=== PATIENT | female | born 1995 | race Caucasian/White ===

== ENCOUNTER 2021-12-28 11:36 | Emergency (ER) | payer MEDICAID, SELFPAY ==
[2021-12-28] VITALS (11 sets, daily range): BP systolic 111–119; BP diastolic 72–89; PULSE 48–89; RESP 3–19; TEMP 36.7; O2SAT 98–100
--- NOTE | ~2021-12-28 | US_ITS ---
EXAMINATION: US pelvic complete DATE: 12/28/2021 15:30 INDICATION: Ovarian cyst. TECHNIQUE: Multiple transabdominal and transvaginal sonographic images of the pelvis were obtained. COMPARISON: CT abdomen and pelvis 12/28/2021 FINDINGS: TRANSABDOMINAL ULTRASOUND: The uterus measures 8.5 x 3.0 x 5.8 cm. There is no free fluid in the pelvis. TRANSVAGINAL ULTRASOUND: The endometrial complex measures 3 mm in thickness. The right ovary measures 3.0 x 1.4 x 2.7 cm. The left ovary measures 3.0 x 3.2 x 2.7 cm. There is a 2.3 cm hemorrhagic cyst in left ovary. There is no rmal vascular flow in the ovaries. IMPRESSION: 1. 2.3 cm hemorrhagic cyst in left ovary. Reviewed, dictated and finalized at location A.
--- NOTE | ~2021-12-28 | CT_ITS ---
EXAMINATION: CT abdomen pelvis w con DATE: 12/28/2021 12:48 INDICATION: Left lower quadrant abdominal pain. Nausea and vomiting. TECHNIQUE: Computed tomography (CT) of the abdomen and pelvis was performed with 100 CC Omnipaque 300 intravenous contrast. Automated exposure control and iterative reconstruction technique were employe d. Exam dose: 284.85 mGy-cm total exam DLP. COMPARISON: None. FINDINGS: The lung bases are clear. Normal heart size. No pericardial or pleural effusion. No hepatic space-occupying mass lesion. The gallbladder is contracted. The gallbladder wall is mildly thickened and enhancing and there is mi nimal pericholecystic fluid. Acute or chronic cholecystitis are not excluded. There is mild intrahepa tic and extrahepatic bile duct dilatation, the common bile duct measuring up to 8 to 9 mm. No pancrea tic ductal dilatation. No pancreatic mass lesion or calcification. Normal splenic size. Normal morphology of the adrenal glands. No renal mass lesion. 7.8 x 11.7 mm nonobstructing lower pole left renal calculus with attenuation of 1000 Hounsfield units . There is some enhancement of the wall of the left renal pelvis and left ureter, suggesting possible l eft acute pyelonephritis. Urinalysis and clinical correlation are recommended. Left ovarian cysts including one measuring up to approximately 1.8 x 2.7 cm. The uterus and adnexal a reas and urinary bladder are otherwise unremarkable. Normal appendix. There is thickening of the wall of the distal and terminal ileum which may be due to infectious or inflammatory ileitis. The colon is relatively evacuated. No bowel obstruction or free air is detected. No erosive change or ankylosis at the sacroiliac joints. Normal caliber of the abdominal aorta. No intraperitoneal or retroperitoneal or pelvic mass lesion or adenopathy or ascites. Included skeletal structures are unremarkable. No suspicious osteolytic or osteoblastic lesions. IMPRESSION: Terminal and distal ileitis; consider infectious or inflammatory ileitis Normal appendix 7.8 x 11.7 mm nonobstructing lower pole left renal calculus Enhancing wall in left renal pelvis and proximal left ureter, suggesting possible acute pyelonephriti s. Consider urinalysis and clinical correlation Up to 1.8 x 2.7 cm left ovarian cysts Mild gallbladder wall thickening and enhancement and minimal pericholecystic fluid. Consider acute or chronic cholecystitis. Reviewed, dictated and finalized at Location [facility]. Reviewed, dictated and finalized at location B. IMPRESSION: Terminal and distal ileitis; consider infectious or inflammatory i leitis Normal appendix 7.8 x 11.7 mm nonobstructing lower pole left renal calculus Enhancing wall in left renal pelvis and proximal left ureter, suggesting possib le acute pyelonephritis. Consider urinalysis and clinical correlation Up to 1.8 x 2.7 cm left ovarian cysts Mild gallbladder wall thickening and enhancement and minimal pericholecystic fl uid. Consider acute or chronic cholecystitis.
--- NOTE | 2021-12-28 11:35 | ED.ABDPAIN ---
HPI - Abdominal Pain General Chief Complaint: Abdominal Pain Stated Complaint: ABD Pain x3 months, N/V/D History of Present Illness HPI narrative: Patient is a 26-year-old female with a history of nephrolithiasis, recent spontaneous miscarriage, presenting to the emergency department for evaluation of left lower quadrant abdominal pain. Patient reporting recent miscarriage last week. Patient states that she is from [place] and is visiting her sister who lives in this area. Patient reports acute onset severe left lower quadrant pain which is sharp, stabbing in nature this morning. Patient states that she has struggled with this pain chronically over the past 3 months. She does have a history of 10 mm kidney stone, but patient's is not sure what kidney this is in. She does not currently have a urologist. Patient denies dysuria, hematuria, she does report both diarrhea and constipation when questioned. She denies fever, chills, she reports nausea and vomiting. She denies upper abdominal pain, chest pain, cough or shortness of breath. Patient reports any current vaginal bleeding or discharge. She reports history of 2 miscarriages in the past. Related Data Allergies Allergy/AdvReac Type Severity Reaction Status Date / Time No Known Allergies Allergy Verified 12/28/21 11:41 Review of Systems Review of Systems: CONSTITUTIONAL: Denies fever, chills, or sweats. EYES: Denies visual changes, redness, or discharge. ENT: Denies rhinorrhea, congestion, sore throat, or otalgia. CARDIOVASCULAR: Denies chest pain, palpitations, or edema. RESPIRATORY: Denies cough or dyspnea. GASTROINTESTINAL: Reports left lower quadrant abdominal pain, nausea and vomiting, diarrhea and constipation GENITOURINARY: Denies dysuria or hematuria. SKIN: Denies rash or itching. MUSCULOSKELETAL: Reports mild left back pain without other joint pain or myalgias NEUROLOGIC: Denies headache, numbness, or weakness. REPLACED BY [facility] Social History Social History (Updated 12/28/21 @ 11:48 by Xiomara Lira MD) Smoking status: Unknown if ever smoked Alcohol intake: current Alcohol use details: Socialsocial Substance use: current Substance use type: marijuana Living arrangements: with family Gender identity (if verbalized by the patient): Female Exam Narrative: GENERAL: Awake, alert, conversant, uncomfortable. HEAD: Normocephalic, atraumatic. EYES: PERRLA and EOMI. ENT: Nares clear, no rhinorrhea or epistaxis. Mucous membranes moist. NECK: Supple. CHEST: No respiratory distress, breathing even and non labored HEART: Regular rate, sinus rhythm ABDOMEN:Non distended, tender left lower quadrant with positive guarding, no rigidity or rebound, positive left flank tenderness EXTREMITIES: Normal range of motion. No edema. SKIN: Warm, dry, no rash. NEURO:No focal deficits. Alert and oriented x3 Course Vital Signs Vital signs: Vital Signs Temperature 36.7 C 12/28/21 11:35 Pulse Rate 89 12/28/21 11:35 Respiratory Rate 18 12/28/21 11:35 Blood Pressure 111/89 12/28/21 11:35 Pulse Oximetry 100 12/28/21 11:35 Oxygen Delivery Room Air 12/28/21 11:35 Temperature 36.7 C 12/28/21 11:35 Pulse Rate 64 12/28/21 15:30 Respiratory Rate 12 12/28/21 15:30 Blood Pressure 119/72 12/28/21 13:15 Pulse Oximetry 99 12/28/21 13:15 Oxygen Delivery Room Air 12/28/21 11:35 MDM - Abdominal Pain MDM Narrative Medical decision making narrative: Patient presenting for evaluation of abdominal pain, located in the left lower quadrant. At the time of assessment, ABCs are intact and vital signs are stable. Differential includes ovarian torsion versus ruptured ectopic versus renal colic, diverticulitis. IV access obtained and labs are drawn. Laboratory results are notable for mild leukocytosis, stable anemia. No acute kidney injury or electrolyte derangement. Urinalysis is concerning for urinary tract infection. Patien
[2021-12-28] MEDS: ONDANSETRON INJ 4 MG/2 ML VIAL IV PUSH (11:47)
[2021-12-28] MEDS: MORPHINE SULFATE (*CRX) 4 MG/ML INJ IV PUSH ×2 (11:47→13:49)
[2021-12-28] MEDS: SODIUM CHLORIDE 0.9% IV 1,000 ML 999 ML IV CONT (11:52)
[2021-12-28 12:03] LABS: Basophils Absolute Auto 0.1 K/mm3 (0.0-0.1); Basophils Percent Auto 0.7 % (0.2-1.2); Eosinophils Absolute Auto 0.2 K/mm3 (0-0.3); Eosinophils Percent Auto 1.3 % (0-4.4); Hematocrit 33.9 % (37.0-47.0); Hemoglobin 10.3 g/dL (12.0-15.0); Immature Granulocyte Absolute 0.05 K/mm3 (0.00-0.031); Immature Granulocyte Percent A 0.4 % (0-0.5); Lymphocytes Absolute Auto 1.85 K/mm3 (0.9-3.2); Lymphocytes Percent Auto 15.9 % (18.3-44.2); Mean Corpuscular HGB Conc 30.4 g/dl (32-36); Mean Corpuscular Hemoglobin 22.6 pg (26-34); Mean Corpuscular Volume 74.3 fl (80-100); Mean Platelet Volume 10.7 fl (7.4-10.4); Monocytes Absolute Auto 0.4 K/mm3 (0.1-0.6); Monocytes Percent Auto 3.4 % (2.6-8.5); Neutrophils Absolute Auto 9.1 K/mm3 (1.3-6.7); Neutrophils Percent Auto 78.3 % (45.5-73.1); Platelet Count Result 456 k/mm3 (150-375); Red Blood Count 4.56 M/mm3 (4.2-5.4); Red Cell Distribution Width 18.1 % (11.5-14.5); White Blood Count 11.6 K/mm3 (4.5-10.0)
[2021-12-28 12:12] LABS: Glucose Point of Care 112 mg/dl (65-105)
[2021-12-28 12:15] LABS: Appearance Urine Cloudy (Clear); Bilirubin Urine 1+ (Negative); Blood Urine 3+ (Negative); Color Urine Yellow (Yellow); Glucose Urine UA Negative (Negative); Ketones Urine 1+ mg/dL (Negative); Leukocyte Esterase Ur 1+ LEU/UL (Negative); Nitrate Urine Positive (Negative); Protein Urine 2+ mg/dL (Negative); Specific Grav Ur >= 1.030 (1.001-1.035); Urobilinogen Urine 0.2 mg/dL (<2.0); pH Urine 5.5 (5.0-9.0)
[2021-12-28 12:18] LABS: Alanine Aminotransferase 16 U/L (6-35); Albumin Level 4.1 g/dL (3.5-5.1); Alkaline Phosphatase 100 U/L (38-126); Anion Gap 9 mmol/L (8-16); Aspartate Amino Transferase 31 U/L (14-36); Bilirubin,Total 0.4 mg/dL (0.2-1.3); Blood Urea Nitrogen 6 mg/dL (7-17); Calcium 8.7 mg/dL (8.4-10.2); Carbon Dioxide 22 mmol/L (22-30); Chloride 110 mmol/L (98-107); Estimated CRCL calculation 100 ml/min; Estimated Glomerular Filt Rate > 60; Glucose 115 mg/dL (65-110); Lipase 30 U/L (23-300); Potassium 4.4 mmol/L (3.4-5.0); Sodium 141 mmol/L (137-145)
[2021-12-28 12:20] LABS: Bacteria Urine Trace /hpf; Mucus Urine Heavy /lpf; RBC Urine >75 /hpf (0-2); Squamous Epithelial Cell Urine Many /hpf (Few); WBC Urine >75 /hpf
[2021-12-28 12:32] LABS: Crenated RBC 1+ (NORMAL); Hypochromasia 1+ (NORMAL); Microcytosis 1+ (NORMAL); Ovalocytes 1+ (NORMAL)
[2021-12-28 12:33] LABS: Add Urine Microscopic? YES
[2021-12-28] MEDS: KETOROLAC 15 MG/ML VIAL (*BKC) IV PUSH (15:49)
== END 2021-12-28 15:53 | disposition home or self-care (01) ==
PROVIDERS: Emergency Provider Emergency Medicine
DX: N12 Tubulo-interstitial nephritis, not specified as acute or chronic (principal); N83.202 Unspecified ovarian cyst, left side
CPT/HCPCS: 36415; 74177; 76856; 80053; 81001; 81025; 82948; 83690; 85025; 87077; 87086; 87186; 96365; 96375; 96376; 99284; J0131; J0696; J1885; J2270; J2405; J7030; Q9967

== ENCOUNTER 2021-12-30 05:33 | Inpatient (IN) | payer MEDICAID, SELFPAY ==
--- NOTE | ~2021-12-30 | US_ITS ---
US abdomen limited INDICATION: Right upper quadrant pain. History of cholelithiasis. PROCEDURE: Realtime right upper abdominal ultrasound. COMPARISON: No prior studies for comparison. FINDINGS: The pancreas is normal without focal mass or pancreatic ductal dilation. Liver echotexture is normal without focal mass or intrahepatic biliary dilatation. There is normal directional flow i n the portal vein. There are gallstones with gallbladder wall thickening, although this could be due to underdistention. . Common bile duct measures 8 mm. No sonographic Aguilera's sign. IMPRESSION: 1: Cholelithiasis and gallbladder neck with possible gallbladder wall thickening versus underdistenti on. Consider cholecystitis in the appropriate clinical setting. Reviewed, dictated and finalized at location A. IMPRESSION: 1: Cholelithiasis and gallbladder neck with possible gallbladder wall thickenin g versus underdistention. Consider cholecystitis in the appropriate clinical se tting.
--- NOTE | ~2021-12-30 | CT_ITS ---
EXAMINATION: CT abdomen pelvis wo con DATE: 12/30/2021 06:33 INDICATION: Hematuria TECHNIQUE: Computed tomography (CT) of the abdomen and pelvis was performed without intravenous contr ast. Automated exposure control and iterative reconstruction technique were employed. The dose-length product was 268.20 mGy-cm. COMPARISON: 12/28/2021 FINDINGS: Lung bases are clear. Heart size is normal. No pericardial or pleural effusion. Liver, spleen, pancre as and bilateral adrenal glands are normal. There is some vicariously excreted contrast likely from t he contrast enhanced CT from 2 days prior within the decompressed gallbladder. Bilateral nephrolithia sis the largest a 11 mm stone at the left ureteropelvic junction. Additional 1 mm and 4 mm stones in the left lower pole calyces of the right kidney respectively. No ureteral stones or hydronephrosis. N ormal appendix and colon. Again seen is edematous-appearing wall thickening of the distal 35 cm of il eum consistent with an ileitis which could be inflammatory or infectious in etiology. No bowel obstru ction. Bladder, anteverted uterus and bilateral adnexa are unremarkable. No abscess or free intraperi toneal gas or fluid. Bones are unremarkable. IMPRESSION: 1. Bilateral nonobstructing nephrolithiasis. No ureteral stones or hydronephrosis. 2. Persistent terminal ileitis extending 35 cm from the ileocecal valve which could be inflammatory s uch as in the setting of Crohn's disease or infectious in etiology. Reviewed, dictated and finalized at location A. IMPRESSION: 1. Bilateral nonobstructing nephrolithiasis. No ureteral stones or hydronephros is. 2. Persistent terminal ileitis extending 35 cm from the ileocecal valve which c ould be inflammatory such as in the setting of Crohn's disease or infectious in etiology.
--- NOTE | ~2021-12-30 | XR_ITS ---
EXAMINATION: XR UGIAC w small bowel DATE: 01/03/2022 12:20 INDICATION: Ileitis TECHNIQUE: The patient drank thick barium, gas-producing crystals, and thin barium. Conventional supi ne abdomen radiographs and fluoroscopic spot radiographs of the esophagus, stomach, and proximal smal l bowel were obtained. Additional overhead radiographs were obtained during the transit through the s mall bowel. Spot fluoroscopic images of the small bowel were obtained upon contrast reaching the cec um. A total of 688 fluoroscopic images and 7 overhead radiographs were obtained. Fluoroscopy exposure time was 4.0 minutes. COMPARISON: None. FINDINGS: The esophagus is normal without mass or stricture. Esophageal motility is normal. There is no hiatal hernia. There was no gastroesophageal reflux with provocative maneuvers. The stomach and proximal sma ll bowel are normal. Transit time from the stomach to proximal colon was approximately 2-3 hours. There is normal caliber and mucosal fold pattern throughout the small bowel. Terminal ileum appears normal with no stricture or abnormal fold thickening. IMPRESSION: 1. Normal upper GI and small bowel follow-through study. The edematous wall thickening in the distal ileum evident on prior CT is not appreciated and may have resolved. Reviewed, dictated and finalized at location A. IMPRESSION: 1. Normal upper GI and small bowel follow-through study. The edematous wall thi ckening in the distal ileum evident on prior CT is not appreciated and may have resolved.
[2021-12-30 05:37] VITALS: BP 135/108; PULSE 64; RESP 14; TEMP 36.8; O2SAT 99
--- NOTE | 2021-12-30 06:03 | ED.GENADULT ---
HPI - General Adult General Chief complaint: Abdominal Pain <Den Alcocer MD - Last Filed: 12/30/21 19:24> Stated complaint: ruq abd pain, n/v, <Den Alcocer MD - Last Filed: 12/30/21 19:24> Time Seen by Provider: 12/30/21 05:35 <Den Alcocer MD - Last Filed: 12/30/21 19:24> History of Present Illness HPI narrative: 26 year-old female with history of cholelithiasis, nephrolithiasis and recent miscarriage presenting to the emergency department for evaluation of left lower quadrant pain and right upper quadrant pain. Patient was seen on the for left lower quadrant pain and was diagnosed with a ruptured cyst. Patient also has history of cholelithiasis and over the last 24 hours has had persistent right upper quadrant pain. Patient does report associated nausea and vomiting. Patient has been taking Phenergan suppositories and Zofran sublingual for nausea without significant results. During patient's last visit she had a CT abdomen pelvis with contrast and had a pelvic ultrasound. <Den Alcocer MD - Last Filed: 12/30/21 19:24> Related Data Home medications: Home Medications Medication Instructions Recorded Confirmed dextroamphetamine-amphetamine ER 20 mg PO DAILY 12/30/21 12/30/21 20 mg 24hr capsule,extend release (Adderall XR) lorazepam 0.5 mg tablet (Ativan) 0.5 mg PO DAILY PRN Anxiety 12/30/21 12/30/21 sertraline 100 mg tablet 150 mg PO DAILY 12/30/21 12/30/21 sertraline 50 mg tablet 150 mg PO DAILY 12/30/21 12/30/21 <Den Alcocer MD - Last Filed: 12/30/21 19:24> Allergies/adverse reactions: Allergies Allergy/AdvReac Type Severity Reaction Status Date / Time No Known Allergies Allergy Verified 12/30/21 12:12 <Den Alcocer MD - Last Filed: 12/30/21 19:24> Review of Systems Review of Systems: CONSTITUTIONAL: Denies fever, chills, or sweats. EYES: Denies visual changes, redness, or discharge. ENT: Denies rhinorrhea, congestion, sore throat, or otalgia. CARDIOVASCULAR: Denies chest pain, palpitations, or edema. RESPIRATORY: Denies cough or dyspnea. GASTROINTESTINAL: Right upper quadrant and left lower quadrant abdominal pain with associated nausea vomiting GENITOURINARY: Denies dysuria or hematuria. SKIN: Denies rash or itching. MUSCULOSKELETAL: Denies back pain, joint pain, or myalgia. NEUROLOGIC: Denies headache, numbness, or weakness. <Den Alcocer MD - Last Filed: 12/30/21 19:24> REPLACED BY [facility] Past Medical History Medical History: Medical History (Updated 12/30/21 @ 19:12 by Anh Ellison MD) ADHD (attention deficit hyperactivity disorder) Anxiety Depression Hemiplegic migraine Iron deficiency anemia Nephrolithiasis <Den Alcocer MD - Last Filed: 12/30/21 19:24> Surgical History Surgical History: Surgical History (Updated 12/30/21 @ 15:32 by Jyoti Fonseca APRN) History of strabismus surgery <Den Alcocer MD - Last Filed: 12/30/21 19:24> Family History Family History: Family History (Updated 12/30/21 @ 15:34 by Jyoti Fonseca APRN) Mother Gallbladder disease Schizophrenia Grandparent Gallbladder disease Leukemia Diabetes mellitus Cerebrovascular accident Heart disease <Den Alcocer MD - Last Filed: 12/30/21 19:24> Social History Social History: Social History (Updated 12/30/21 @ 15:35 by Jyoti Fonseca APRN) Smoking packs per day: 0.33 Smoking cigarettes per day: 6.6 Years smoked: 9 Smoking pack-years: 2.97 Smoking status: Former smoker Tobacco type: e-cigarettes/vaping Second hand tobacco smoke exposure: Yes Alcohol intake: current Alcohol use details: Socially Substance use: current Substance use type: marijuana Other substance usage details: Socially Living arrangements: alone Occupation/Education: unemployed Gender identity (if verbalized by the patient): Female Spiritual care concerns: No <Den Alcocer
[2021-12-30] MEDS: METOCLOPRAMIDE HCL INJ 10 MG/2 ML VIAL IV PUSH (06:10)
[2021-12-30 06:11] LABS: Appearance Urine Cloudy (Clear); Basophils Absolute Auto 0.1 K/mm3 (0.0-0.1); Basophils Percent Auto 0.7 % (0.2-1.2); Bilirubin Urine 2+ (Negative); Blood Urine 3+ (Negative); Color Urine Yellow (Yellow); Eosinophils Absolute Auto 0.3 K/mm3 (0-0.3); Eosinophils Percent Auto 2.4 % (0-4.4); Glucose Urine UA Negative (Negative); Hematocrit 33.4 % (37.0-47.0); Hemoglobin 10.7 g/dL (12.0-15.0); Immature Granulocyte Absolute 0.02 K/mm3 (0.00-0.031); Immature Granulocyte Percent A 0.2 % (0-0.5); Ketones Urine 2+ mg/dL (Negative); Leukocyte Esterase Ur Trace LEU/UL (Negative); Lymphocytes Absolute Auto 3.67 K/mm3 (0.9-3.2); Lymphocytes Percent Auto 34.2 % (18.3-44.2); Mean Corpuscular Hemoglobin 22.7 pg (26-34); Mean Corpuscular Volume 70.8 fl (80-100); Mean Platelet Volume 11.2 fl (7.4-10.4); Monocytes Absolute Auto 0.7 K/mm3 (0.1-0.6); Monocytes Percent Auto 6.4 % (2.6-8.5); Neutrophils Percent Auto 56.1 % (45.5-73.1); Nitrate Urine Negative (Negative); Platelet Count Result 501 k/mm3 (150-375); Protein Urine 3+ mg/dL (Negative); Red Blood Count 4.72 M/mm3 (4.2-5.4); Red Cell Distribution Width 17.7 % (11.5-14.5); Specific Grav Ur >= 1.030 (1.001-1.035); Urobilinogen Urine 0.2 mg/dL (<2.0); White Blood Count 10.7 K/mm3 (4.5-10.0); pH Urine 5.5 (5.0-9.0)
[2021-12-30] MEDS: SODIUM CHLORIDE 0.9% IV 1,000 ML 999 ML IV CONT (06:11)
[2021-12-30] MEDS: HYDROmorphone HCL INJ (*CRX) 1 MG/ML SYR IV PUSH (06:12)
[2021-12-30 06:16] LABS: Lactic Acid Reflex 0.9 mmol/L (0.7-2.0)
[2021-12-30 06:18] LABS: Alanine Aminotransferase 25 U/L (6-35); Albumin Level 4.1 g/dL (3.5-5.1); Alkaline Phosphatase 108 U/L (38-126); Anion Gap 10 mmol/L (8-16); Aspartate Amino Transferase 36 U/L (14-36); Bilirubin,Total 0.5 mg/dL (0.2-1.3); Blood Urea Nitrogen 11 mg/dL (7-17); Calcium 9.3 mg/dL (8.4-10.2); Carbon Dioxide 22 mmol/L (22-30); Chloride 106 mmol/L (98-107); Estimated CRCL calculation 88 ml/min; Estimated Glomerular Filt Rate > 60; Glucose 90 mg/dL (65-110); Lipase 27 U/L (23-300); Sodium 138 mmol/L (137-145)
[2021-12-30 06:23] LABS: Bacteria Urine Trace /hpf; Mucus Urine Heavy /lpf; RBC Urine >75 /hpf (0-2); Squamous Epithelial Cell Urine Many /hpf (Few); WBC Urine >75 /hpf
[2021-12-30 06:24] LABS: Add Urine Microscopic? YES
[2021-12-30 07:56] VITALS: PULSE 70; RESP 13; O2SAT 100
[2021-12-30] MEDS: KETOROLAC 30 MG/ML VIAL (*BKC) IV PUSH (08:58)
[2021-12-30 10:19] LABS: SARS-CoV-2 RNA PCR Negative
[2021-12-30] MEDS: MORPHINE SULFATE (*CRX) 4 MG/ML INJ IV PUSH ×5 (10:37→21:52)
--- NOTE | 2021-12-30 11:23 | PM.CNGS ---
Assessment and Plan Assessment and plan (1) Cholecystitis with cholelithiasis: Code(s): K80.10 - Calculus of gallbladder with chronic cholecystitis without obstruction Status: Acute Assessment and Plan: I have reviewed the CTs and ultrasounds and discussed the findings with the patient. She has evidence of cholelithiasis and might have some mild gallbladder wall thickening suggestive of cholecystitis. Her right upper quadrant pain is mild compared to her lower abdominal pain at this time. Certainly her nausea and vomiting could be related to the gallbladder issues, but with everything else going on currently, the gallbladder be best treated conservatively at this time. I have discussed low-fat diet and symptomatic relief for the a pain and nausea at this time. Will reassess with serial abdominal examinations. Could consider laparoscopic cholecystectomy as an outpatient or more urgently if symptoms do not respond to conservative treatment. (2) Terminal ileitis: Code(s): K50.00 - Crohn's disease of small intestine without complications Status: Acute Assessment and Plan: Patient has symptoms CT findings concerning for Crohn's disease. Will await GI evaluation and further treatment before considering laparoscopic cholecystectomy. (3) Pyelonephritis: Code(s): N12 - Tubulo-interstitial nephritis, not specified as acute or chronic Status: Acute Assessment and Plan: Keflex likely not adequate for current treatment pyelonephritis. Continue antibiotic treatment per hospitalist. (4) Hemorrhagic cyst of left ovary: Code(s): N83.202 - Unspecified ovarian cyst, left side Status: Acute History of Present Illness Consult details Consult date: 12/30/21 Reason for consult: other (RUQ pain) Requesting physician: Anh Ellison MD Narrative: This is a 26-year-old woman who I am asked to see in the emergency department for right upper quadrant pain. She presents with multiple complaints and has been to the emergency department several times over the past 6 months. She is from [place] but is moving to this area. She went to the emergency department on 12/28/2021 with predominantly left lower quadrant pain. She was found to have evidence of pyelonephritis and a hemorrhagic cyst on the left ovary. She was sent home from the emergency department on Keflex. She states that for the past 2 days she has been unable to keep anything down due to severe nausea and vomiting. She is also now experiencing some pain in the right upper quadrant. This pain in the right upper quadrant has been intermittent over the past 6 months or so. She has noticed that greasy food seem to cause the pain. She also notes that her mother and grandmother both had gallbladder problems in the past. Her CT and ultrasound showed mild gallbladder wall thickening and cholelithiasis. Liver enzymes have been normal. The patient also complains of longstanding problems with her bowels. She states that she has had diarrhea softer stools most of the time since she was a teenager. She has also noticed some red stools in the past. She has never been worked up for Crohn's, but she does admit that she suspected Crohn's as a possibility for some of her symptoms. She has noticed that eating salads makes her diarrhea worse. She has had about a 30 lb weight loss over the past 6 months. She has also had 2 miscarriages in the last [address] on 12/28 and 722 both show terminal ileitis suspicious for infectious or inflammatory bowel disease. She is now being admitted for workup and treatment of all of these complaints. Review of Systems Review of Systems: All systems reviewed & are unremarkable except as noted in HPI and below Constitutional: Constitutional: Denies chills and Denies fever(s) Eyes: Eyes: Denies change in vision ENT: Denies hearing loss, Denies neck pain and Denies sore throat Cardiovascular: [facility]
--- NOTE | 2021-12-30 11:56 | PC.NURSE ---
This patient, Krista Lima, was admitted to [facility] Surg Room 310-01 on 12/30/21 @ 1145. Patient/family oriented to hospital policies and general routines including ID bracelet, bed and alarms, visiting hours, pain management, procedures, bathroom and other care routines, personal items, smoking policy, room service/diet, and visiting hours. Information on how to activate the Rapid Response Team has been discussed. Patient/Family are encouraged to report perceived risks to care and to ask questions if they do not understand what they are told or what they should do.
[2021-12-30 12:00] VITALS: BP 108/49; PULSE 48; RESP 16; TEMP 36.2; O2SAT 100
[2021-12-30] MEDS: SODIUM CHLORIDE 0.9% IV 1,000 ML 125 ML IV CONT ×2 (12:09→21:04)
[2021-12-30 13:38] VITALS: BMI 26.4
--- NOTE | 2021-12-30 14:31 | PM.IMHP ---
H&P: HPI History of Present Illness Date/Time: 12/30/21 14:31 Chief Complaint: Lower abdominal pain Narrative: Krista Lima is a 26 yo female with medical history of kidney stones, iron deficiency anemia, ADHD, depression, anxiety, hemiplegic migraines and two recent spontaneous miscarriages in the past 6 months; her last miscarriage was 3 weeks ago. She presented to the ED today for evaluation of LLQ and RUQ pain. The patient was seen at our facility on 12/28/21 for LLQ pain and was diagnosed with complicated UTI, hemorrhagic left ovary cyst and discharged home on oral Keflex. She reports that since that time her pain has persisted and she has been unable to keep food or liquids down. She has been unable to take her antibiotic because of this, as well. Her RUQ pain is intermittent over the past 6 months and worsened by greasy foods. LLQ pain is constant, sharp, worsened by touch and improved with a heating pad. She reports 2 days of associated nausea, vomiting, alternating chills and sweats, dysuria and flank pain. She did not take her temperature, however. She has chronic loose mushy stools with intermittent mucous and blood since adolescence. She has reportedly lost approximately 30 pounds. She has had no prior colonoscopy or GI evaluation. The patient is in the process of moving from [place] and has some family nearby. In the ED, her blood pressure was elevated 135/108, HR 64, RR 14, temp 98.3F, and spO2 99% on room air. Lab work showed mildly elvated WBC 10.6, H/H 10.7/33.4, and UA with 3+ blood, 3+ protein, trace leukocytes, >75 WBC, trace bacteria and 2+ urobilirubin. 12/28 urine cultures was positive for >100,[address] and abdominal US demonstrated cholelithiasis with possible gallbladder wall thickening. CT abdomen/pelvis also showed terminal ileitis suspicious for infectious or inflammatory bowel disease, as well as bilateral non-obstructing nephrolithiasis. She received 1L NS fluids, IV diluadid, IV toradol, IV reglan and 1 gram IV Rocephin in the ED. General Surgery was consulted in the ED. The patient was referred for observation and further evaluation of abdominal pain. Review of Systems Review of Systems: All systems reviewed & are unremarkable except as noted in HPI and below Neurologic: Comments: Stutter and facial numbness with migraines. Psychiatric: Comments: PHQ2 score 1. No suicidal ideation. [facility] Past Medical History Medical History (Updated 12/30/21 @ 15:56 by Jyoti Fonseca APRN) ADHD (attention deficit hyperactivity disorder) Anxiety Depression Hemiplegic migraine Iron deficiency anemia Nephrolithiasis Surgical History Surgical History (Updated 12/30/21 @ 15:32 by Jyoti Fonseca APRN) History of strabismus surgery Family History Family History (Updated 12/30/21 @ 15:34 by Jyoti Fonseca APRN) Mother Gallbladder disease Schizophrenia Grandparent Gallbladder disease Leukemia Diabetes mellitus Cerebrovascular accident Heart disease Social History Social History (Updated 12/30/21 @ 15:35 by Jyoti Fonseca APRN) Smoking packs per day: 0.33 Smoking cigarettes per day: 6.6 Years smoked: 9 Smoking pack-years: 2.97 Smoking status: Former smoker Tobacco type: e-cigarettes/vaping Second hand tobacco smoke exposure: Yes Alcohol intake: current Alcohol use details: Socially Substance use: current Substance use type: marijuana Other substance usage details: Socially Living arrangements: alone Occupation/Education: unemployed Gender identity (if verbalized by the patient): Female Spiritual care concerns: No Meds Home Medications and Allergies Home Medications Medication Instructions Recorded Confirmed Type acetaminophen 500 mg capsule 500 mg PO Q6H PRN fever or pain 12/28/21 12/30/21 Rx #30 caps cephalexin 500 mg capsule 500 mg PO Q8H 10 days #30 caps 12/28/21 12/30/21 Rx dicyclomine 1
[2021-12-30 15:44] LABS: CRP < 0.5 mg/dL (<1.0)
[2021-12-30 16:17] LABS: Vitamin D 25 Hydroxy 27.4 ng/mL
[2021-12-30 16:48] LABS: Folic Acid 18.1 ng/mL (2.76->20)
[2021-12-30] MEDS: ONDANSETRON INJ 4 MG/2 ML VIAL IV PUSH ×2 (17:30→21:02)
[2021-12-30 17:38] LABS: Iron 23 ug/dL (37-170); Percent Iron Saturation 7 % (20-50)
[2021-12-30] MEDS: LORazepam (*CRX) 0.5 MG TABLET PO (20:41)
[2021-12-30] MEDS: PROMETHAZINE HCL 25 MG/ML AMPUL 12.5 MG IV PUSH (21:53)
[2021-12-30 22:00] VITALS: BP 128/78; PULSE 71; RESP 16; TEMP 36.2; O2SAT 98
[2021-12-31] MEDS: MORPHINE SULFATE (*CRX) 4 MG/ML INJ IV PUSH ×7 (04:01→21:58)
[2021-12-31] MEDS: PROMETHAZINE HCL 25 MG/ML AMPUL 12.5 MG IV PUSH ×5 (04:01→21:59)
[2021-12-31 05:55] VITALS: BP 125/74; PULSE 43; RESP 14; TEMP 36.3; O2SAT 99
[2021-12-31 06:40] LABS: Basophils Absolute Auto 0.1 K/mm3 (0.0-0.1); Eosinophils Absolute Auto 0.3 K/mm3 (0-0.3); Eosinophils Percent Auto 3.6 % (0-4.4); Hematocrit 28.4 % (37.0-47.0); Hemoglobin 8.5 g/dL (12.0-15.0); Immature Granulocyte Absolute 0.02 K/mm3 (0.00-0.031); Immature Granulocyte Percent A 0.3 % (0-0.5); Lymphocytes Absolute Auto 2.35 K/mm3 (0.9-3.2); Lymphocytes Percent Auto 34.3 % (18.3-44.2); Mean Corpuscular HGB Conc 29.9 g/dl (32-36); Mean Corpuscular Hemoglobin 22.4 pg (26-34); Mean Corpuscular Volume 74.7 fl (80-100); Mean Platelet Volume 11.2 fl (7.4-10.4); Monocytes Absolute Auto 0.6 K/mm3 (0.1-0.6); Monocytes Percent Auto 8.5 % (2.6-8.5); Neutrophils Absolute Auto 3.6 K/mm3 (1.3-6.7); Neutrophils Percent Auto 52.3 % (45.5-73.1); Platelet Count Result 339 k/mm3 (150-375); Red Cell Distribution Width 17.9 % (11.5-14.5); White Blood Count 6.9 K/mm3 (4.5-10.0)
[2021-12-31 06:54] LABS: Alanine Aminotransferase 32 U/L (6-35); Albumin Level 3.1 g/dL (3.5-5.1); Alkaline Phosphatase 84 U/L (38-126); Anion Gap 6 mmol/L (8-16); Aspartate Amino Transferase 51 U/L (14-36); Bilirubin,Total 0.4 mg/dL (0.2-1.3); Blood Urea Nitrogen 9 mg/dL (7-17); Calcium 7.9 mg/dL (8.4-10.2); Carbon Dioxide 25 mmol/L (22-30); Chloride 108 mmol/L (98-107); Estimated CRCL calculation 88 ml/min; Estimated Glomerular Filt Rate > 60; Glucose 81 mg/dL (65-110); Lipase 12 U/L (23-300); Sodium 139 mmol/L (137-145)
[2021-12-31 07:46] LABS: Acanthocytes 1+ (NORMAL); Platelet Estimate Adequate (Adequate)
[2021-12-31 07:47] LABS: Poikilocytosis 1+ (NORMAL)
[2021-12-31 07:54] VITALS: O2SAT 93
--- NOTE | 2021-12-31 07:58 | WPDGICN ---
Assessment and Plan Assessment and plan (1) Terminal ileitis: Code(s): K50.00 - Crohn's disease of small intestine without complications Status: Acute Assessment and Plan: I think there is a high probability that she may have Crohn's disease. I have ordered serology for inflammatory bowel disease. I will tentatively schedule her for colonoscopy to be done Sunday, assuming she can tolerate the prep (2) Abdominal pain: Code(s): R10.9 - Unspecified abdominal pain Status: Acute Assessment and Plan: her pain is probably multifactorial. Her right lower quadrant discomfort and tenderness is likely due to the ileitis seen on CT. She also has tenderness in the left lower quadrant which she states has been present longer and is likely due to her hemorrhagic cyst. (3) Nephrolithiasis: Code(s): N20.0 - Calculus of kidney Status: Acute Assessment and Plan: These are described as nonobstructing. The 1 stone in the ureteral pelvic junction is 11 mm. (4) Hemorrhagic cyst of left ovary: Onset Date: Unknown Code(s): N83.202 - Unspecified ovarian cyst, left side Status: Acute Assessment and Plan: This was diagnosed a few months ago in [place]. (5) Spontaneous miscarriage: Code(s): O03.9 - Complete or unspecified spontaneous without complication Status: Acute Assessment and Plan: She has had 2 miscarriages 1 just a few weeks ago. I do not think that this contributes to her present illness (6) Chronic diarrhea: Code(s): K52.9 - Noninfective gastroenteritis and colitis, unspecified Status: Acute Assessment and Plan: or her life his stools have been loose. She states that she tried a gluten free diet for several months it was better but then she would eat a piece of bread a not have any acute symptoms. Plan She will be continued on a clear liquid diet. I will start her on a bowel prep for colonoscopy to be done Sunday. GI Consult Note Consult date/time: 12/31/21 07:58 HPI: Krista Liam is a 26 year old female was admitted through the emergency room with abdominal pain. She has recently had a miscarriage. She then began having more pain than usual. She often has pain in the left lower quadrant and has been told in the past that she has hemorrhagic cyst which might be leaking from time to time. That diagnosis was made in [place]. She has recently relocated to this area. She also has had chronic loose stools, most of her life. Time she would see some blood tinged mucus in her stools as well. She has had pain throughout the abdomen recently but a little worse on the left than on the right. She was seen in the emergency room and thought to have urinary tract infection and sent home on Keflex but has not been able to keep the medication down and in fact has been vomiting now and cannot keep anything down the last several days. She does not believe that she has had a fever[place] [address] and blood pressure is elevated. She also has a history of kidney stones and CT scan here does show bilateral nonobstructing stones. The CT also shows terminal ileitis in the distal 35 cm. She states that her weight fluctuates but she has had no dramatic recent weight loss. She has been started on antibiotics, Rocephin, which was started in the emergency room. Review of Systems Review of Systems: All systems reviewed & are unremarkable except as noted in HPI and below PMFSH Past Medical History Medical History (Updated 12/31/21 @ 08:03 by Luis F Luna MD) ADHD (attention deficit hyperactivity disorder) Anxiety Depression Hemiplegic migraine Hemorrhagic cyst of left ovary (Unknown) Iron deficiency anemia Nephrolithiasis Surgical History Surgical History History of strabismus surgery Family History Family History (
[2021-12-31] MEDS: ENOXAPARIN 40 MG/0.4 ML SYRINGE SUB-Q (08:00)
[2021-12-31] MEDS: CHOLECALCIFEROL 1,000 UNITS TABLET 2000 UNITS PO (10:15)
[2021-12-31] MEDS: FERROUS SULFATE 324 MG TABLET PO (10:15)
[2021-12-31] MEDS: SODIUM CHLORIDE 0.9% IV 1,000 ML 125 ML IV CONT (12:06)
--- NOTE | 2021-12-31 12:45 | PM.IMPN ---
Progress Note: A&P Assessment and Plan (1) Cholecystitis with cholelithiasis: Code(s): K80.10 - Calculus of gallbladder with chronic cholecystitis without obstruction Status: Acute Assessment and Plan: CT and US demonstrate gallstones with gallbladder wall thickening. RUQ pain noted on exam. Patient endorses worsening RUQ pain after eating. - General surgery consulted and appreciate recommendations. - Continue Zosyn 3.375 mg IV Q6 hours. Antibiotic day 2. Transition to PO when able to tolerate diet. - Change to NPO except ice chips and meds. - Pain control with IV Morphine PRN and Acetaminophen PRN. - Continue IV hydration. - Monitor LFTs. (2) Terminal ileitis: Code(s): K50.00 - Crohn's disease of small intestine without complications Status: Acute Assessment and Plan: CT with persistent terminal ileitis 35 cm from ileocecal valve. Patient endorses longstanding loose stool with intermittent mucous and blood, as well as 30 pound weight loss. H/O iron deficiency anemia. - Consult GI and appreciate recommendations. - Serum iron and saturation low; Vitamin D 27.4 insufficiency. Normal B12 and folate. - Inflammatory bowel work-up pending. - Colonoscopy planned for Tuesday 01/02 (3) Pyelonephritis: Code(s): N12 - Tubulo-interstitial nephritis, not specified as acute or chronic Status: Acute Assessment and Plan: Noted on 12/28 CT scan with left renal pelvis and proximal left ureter with enhancing wall suggestive of pyelonephritis. UA concerning for infection on 12/28 and urine culture pansensitive E.coli. Patient was unable to take oral antibiotic. Left CVA and suprapubic tenderness on admission exam. - Continue Zosyn for UTI and cholecystitis. - Monitor WBC and fevers. - Monitor I/O. - Repeat urine culture pending. (4) Iron deficiency anemia: Qualifiers: Iron deficiency anemia type: unspecified iron deficiency Qualified Code(s): D50.9 - Iron deficiency anemia, unspecified Code(s): D50.9 - Iron deficiency anemia, unspecified Status: Chronic Assessment and Plan: H/H 10.. She reports prior h/o iron deficiency anemia and takes a Flintstones multivitamin daily. She endorses intermittent, small bright red blood in stool. - ferrous sulfate 325 mg daily. - Monitor H/H. Hgb 8.5 today, decreased from 10.7 prior to receiving anticoagulation. May be dilutional component as she has had no stools. Repeat H/H at 1500. Would like to continue anticoagulation if possible d/t possible inflammatory bowel disease. (5) Nephrolithiasis: Code(s): N20.0 - Calculus of kidney Status: Acute Assessment and Plan: Bilateral nephrolithiasis noted on CT 1- 11 mm, nonobstructing. H/O kidney stones. Likely chronic and not cause of acute pain. - Continue pain control and IVF as above. (6) Depression: Qualifiers: Depression Type: unspecified Qualified Code(s): F32.A - Depression, unspecified Code(s): F32.A - Depression, unspecified Status: Chronic Assessment and Plan: She endorses situational depression from recent move, miscarriages and being ill. No suicidal ideation. Patient is tearful today. - Continue sertraline at home dose. - Therapeutic communication given. Monitor mood. Plan Diet: NPO CODE STATUS: FULL CODE Disposition: home when medically stable. Time Spent With Patient Time with patient: 25 - 35 minutes Subjective Date/time seen: 12/31/21 12:45 Interval history: Patient is a 26 yo female with medical history of kidney stones, iron deficiency anemia, ADHD, depression, anxiety, hemiplegic migraines and two recent spontaneous miscarriages in the past 6 months. She presented to the ED for evaluation of LLQ and RUQ pain for 2 days with persistent N/V. CT demonstrated concern for cholelithiasis, cholecystitis and terminal ileitis. She was diagnosed with pyelonephrit
--- NOTE | 2021-12-31 13:38 | PM.PNGS ---
Progress Note: A&P Assessment and Plan (1) Cholecystitis with cholelithiasis: Code(s): K80.10 - Calculus of gallbladder with chronic cholecystitis without obstruction Status: Acute Assessment and Plan: Minimal symptoms gallbladder at this time. Agree with further GI workup for probable Crohn's disease. Patient still having trouble tolerating clear liquids. Will continue to follow for any signs stricture, perforation, abscess, or fistula. Once inflammation goes down patient is tolerating diet, she should be surgically stable for discharge and can follow up outpatient to discuss gallbladder symptoms any further treatment in more detail. (2) Terminal ileitis: Code(s): K50.00 - Crohn's disease of small intestine without complications Status: Acute (3) Pyelonephritis: Code(s): N12 - Tubulo-interstitial nephritis, not specified as acute or chronic Status: Acute (4) Hemorrhagic cyst of left ovary: Onset Date: Unknown Code(s): N83.202 - Unspecified ovarian cyst, left side Status: Acute Subjective Subjective Date/Time Seen: 12/31/21 13:38 Interval history: Still having nausea and vomiting. Most of her pain is in the lower abdomen. Objective Data Vital Signs Vital Signs: Vital Signs - 24 hr 12/30/21 20:00 12/30/21 22:00 12/31/21 05:55 Temperature 36.2 C L 36.3 C L Pulse Rate 71 43 L Respiratory Rate 16 14 Blood Pressure 128/78 125/74 Pulse Oximetry 98 99 Oxygen Delivery Room Air 12/31/21 08:00 12/31/21 07:54 Temperature Pulse Rate Respiratory Rate Blood Pressure Pulse Oximetry 93 Oxygen Delivery Room Air Room Air Intake/Output Intake/Output: Intake & Output 12/28/21 12/29/21 12/30/21 12/31/21 23:59 23:59 23:59 23:59 Intake Total 2680 1600 Balance 2680 1600 Meds/Results Medications: Active Medications Generic Name Dose Route Start Last Admin Trade Name Freq PRN Reason Stop Dose Admin Acetaminophen 500 mg 12/30/21 14:44 Acetaminophen 500 Mg Tablet PO Q6H PRN fever or pain rated 1-3 Enoxaparin Sodium 40 mg 12/31/21 09:00 12/31/21 08:00 Enoxaparin 40 Mg/0.4 Ml Syringe SUB-Q 40 mg DAILY YEISON Administration Ferrous Sulfate 324 mg 12/31/21 08:00 12/31/21 10:15 Ferrous Sulfate 324 Mg Tablet PO 324 mg DAILY@0800 [facility] Administration Piperacillin/Tazobactam/Dextrose 3.375 gm in 50 mls @ 100 mls/hr 12/30/21 18:00 12/31/21 11:59 Zosyn 3.375 Gm/D5w 50ml Pm IVPB 100 mls/hr Q6H YEISON Administration Potassium Chloride 10 meq/ 1,000 mls @ 100 mls/hr 12/31/21 12:45 Dextrose/Sodium Chloride IV CONT .Q10H YEISON Lorazepam 0.5 mg 12/30/21 14:44 12/30/21 20:41 Lorazepam (*Crx) 0.5 Mg Tablet PO 0.5 mg DAILY PRN Administration Anxiety Morphine Sulfate 4 mg 12/30/21 09:21 12/31/21 11:59 Morphine Sulfate (*Crx) 4 Mg/Ml Inj IV PUSH 4 mg Q2H PRN Administration Pain Rated 7-10 Ondansetron HCl 4 mg 12/30/21 09:21 12/30/21 21:02 Ondansetron Inj 4 Mg/2 Ml Vial IV PUSH 4 mg Q4H PRN Administration Nausea Promethazine HCl 12.5 mg 12/30/21 21:36 12/31/21 11:59 Promethazine Hcl 25 Mg/Ml Ampul IV PUSH 12.5 mg Q4H PRN Administration Nausea And Vomiting Sertraline HCl 150 mg 12/31/21 09:00 12/31/21 10:13 Sertraline Hcl 50 Mg Tablet PO Not Given QAM [facility] Vitamin D 2,000 units 12/31/21 09:00 12/31/21 10:15 Cholecalciferol 1,000 Units Tablet PO 2,000 units DAILY [facility] Administration Radiology Results: ITS Impressions Abdomen/Pelvis CT 12/30/21 06:40 IMPRESSION: 1. Bilateral nonobstructing nephrolithiasis. No ureteral stones or hydronephrosis. 2. Persistent terminal ileitis extending 35 cm from the ileocecal valve which could be inflammatory such as in the setting of Crohn's disease or infectious in etiology. Abdomen Ultrasound 12/30/21 08:27 IMPRESSION: 1: Cholelithiasis and gallbladder n
[2021-12-31 14:00] VITALS: BP 142/74; PULSE 52; RESP 20; TEMP 36.5; O2SAT 99
[2021-12-31] MEDS: POTASSIUM CHLORIDE INJ 10 MEQ in DEXTROSE 5%/0.45% SOD CHL 1,000 ML 100 MEQ IV CONT ×2 (14:27→23:12)
[2021-12-31] MEDS: ONDANSETRON INJ 4 MG/2 ML VIAL IV PUSH ×2 (14:32→19:57)
[2021-12-31 15:22] LABS: Hematocrit 29.9 % (37.0-47.0); Hemoglobin 9.4 g/dL (12.0-15.0)
[2021-12-31] MEDS: LORazepam (*CRX) 0.5 MG TABLET PO (21:12)
[2021-12-31 22:00] VITALS: BP 140/81; PULSE 56; RESP 18; TEMP 36.1; O2SAT 100
[2022-01-01] MEDS: ONDANSETRON INJ 4 MG/2 ML VIAL IV PUSH ×3 (04:33→17:07)
[2022-01-01] MEDS: MORPHINE SULFATE (*CRX) 4 MG/ML INJ IV PUSH ×3 (04:34→10:28)
[2022-01-01 06:00] VITALS: BP 116/77; PULSE 43; RESP 18; TEMP 36.3; O2SAT 100
[2022-01-01 06:21] LABS: Basophils Percent Auto 0.6 % (0.2-1.2); Eosinophils Absolute Auto 0.2 K/mm3 (0-0.3); Eosinophils Percent Auto 3.5 % (0-4.4); Hematocrit 28.3 % (37.0-47.0); Hemoglobin 8.6 g/dL (12.0-15.0); Immature Granulocyte Absolute 0.01 K/mm3 (0.00-0.031); Immature Granulocyte Percent A 0.2 % (0-0.5); Lymphocytes Absolute Auto 2.56 K/mm3 (0.9-3.2); Lymphocytes Percent Auto 39.4 % (18.3-44.2); Mean Corpuscular HGB Conc 30.4 g/dl (32-36); Mean Corpuscular Hemoglobin 22.6 pg (26-34); Mean Corpuscular Volume 74.3 fl (80-100); Monocytes Absolute Auto 0.6 K/mm3 (0.1-0.6); Monocytes Percent Auto 9.7 % (2.6-8.5); Neutrophils Percent Auto 46.6 % (45.5-73.1); Platelet Count Result 346 k/mm3 (150-375); Red Blood Count 3.81 M/mm3 (4.2-5.4); Red Cell Distribution Width 17.9 % (11.5-14.5); White Blood Count 6.5 K/mm3 (4.5-10.0)
[2022-01-01 06:36] LABS: Alanine Aminotransferase 28 U/L (6-35); Albumin Level 2.9 g/dL (3.5-5.1); Alkaline Phosphatase 78 U/L (38-126); Anion Gap 5 mmol/L (8-16); Aspartate Amino Transferase 40 U/L (14-36); Bilirubin,Total 0.4 mg/dL (0.2-1.3); Blood Urea Nitrogen 2 mg/dL (7-17); Calcium 7.8 mg/dL (8.4-10.2); Carbon Dioxide 27 mmol/L (22-30); Chloride 105 mmol/L (98-107); Estimated CRCL calculation 102 ml/min; Estimated Glomerular Filt Rate > 60; Glucose 92 mg/dL (65-110); Potassium 3.6 mmol/L (3.4-5.0); Sodium 137 mmol/L (137-145)
[2022-01-01 07:05] LABS: Acanthocytes 1+ (NORMAL); Platelet Estimate Adequate (Adequate)
[2022-01-01 07:06] LABS: Poikilocytosis 1+ (NORMAL)
[2022-01-01] MEDS: PROMETHAZINE HCL 25 MG/ML AMPUL 12.5 MG IV PUSH (08:05)
[2022-01-01] MEDS: ENOXAPARIN 40 MG/0.4 ML SYRINGE SUB-Q (08:06)
[2022-01-01] MEDS: FERROUS SULFATE 324 MG TABLET PO (08:06)
[2022-01-01] MEDS: CHOLECALCIFEROL 1,000 UNITS TABLET 2000 UNITS PO (08:06)
[2022-01-01 09:07] VITALS: O2SAT 94
--- NOTE | 2022-01-01 10:05 | WPDGIPROGNO ---
Progress Note: A&P Assessment and Plan (1) Terminal ileitis: Code(s): K50.00 - Crohn's disease of small intestine without complications Status: Acute Assessment and Plan: I think there is a high probability that she may have Crohn's disease. I have ordered serology for inflammatory bowel disease. I will tentatively schedule her for colonoscopy to be done Sunday, assuming she can tolerate the prep. 01/01/2022 because she has been vomiting, she has partly partial small-bowel obstruction due to her inflammatory bowel disease. Consequently it will be difficult for her to take a bowel prep at this point. I will start her on IV steroids to hopefully reduce the inflammation causing her current symptoms. (2) Abdominal pain: Code(s): R10.9 - Unspecified abdominal pain Status: Acute Assessment and Plan: her pain is probably multifactorial. Her right lower quadrant discomfort and tenderness is likely due to the ileitis seen on CT. She also has tenderness in the left lower quadrant which she states has been present longer and is likely due to her hemorrhagic cyst. (3) Nephrolithiasis: Code(s): N20.0 - Calculus of kidney Status: Acute Assessment and Plan: These are described as nonobstructing. The 1 stone in the ureteral pelvic junction is 11 mm. (4) Hemorrhagic cyst of left ovary: Onset Date: Unknown Code(s): N83.202 - Unspecified ovarian cyst, left side Status: Acute Assessment and Plan: This was diagnosed a few months ago in [place]. because most of her pain is in the left side, she still thinks that the hemorrhagic cyst may be playing a role in her pain, though not the other symptoms such as vomiting (5) Spontaneous miscarriage: Code(s): O03.9 - Complete or unspecified spontaneous without complication Status: Acute Assessment and Plan: She has had 2 miscarriages 1 just a few weeks ago. I do not think that this contributes to her present illness (6) Chronic diarrhea: Code(s): K52.9 - Noninfective gastroenteritis and colitis, unspecified Status: Acute Assessment and Plan: or her life his stools have been loose. She states that she tried a gluten free diet for several months it was better but then she would eat a piece of bread a not have any acute symptoms. 01/01/2022 IBD serology is pending Plan She will be continued on a clear liquid diet. I will start her on a bowel prep for colonoscopy to be done Sunday. 01/01/2022 I do not know that she will be able to complete a prep today. We will begin bowel prep when she is able to tolerate it Time Spent With Patient Time with patient: 15 - 25 minutes Subjective Date/time seen: Krista Lima is a 26 year old female? was admitted through the emergency room with abdominal pain.? She has recently had a miscarriage.? She then began having more pain than usual.? She often has pain in the left lower quadrant and has been told in the past that she has hemorrhagic cyst which might be leaking from time to time.? That diagnosis was made in [place].? She has recently relocated to this area.? She also has had chronic loose stools, most of her life.? Time she would see some blood tinged mucus in her stools as well.? She has had pain throughout the abdomen recently but a little worse on the left than on the right.? She was seen in the emergency room and thought to have urinary tract infection and sent home on Keflex but has not been able to keep the medication down and in fact? has been vomiting now and cannot keep anything down the last several days.? She does not believe that she has had a fever.? [place] [address] and blood pressure is elevated.? She also has a history of kidney stones and CT scan here does show bilateral nonobstructing stones.? The CT also shows terminal ileitis in the distal 35 cm.? She states that her weight fluctu
[2022-01-01] MEDS: POTASSIUM CHLORIDE INJ 10 MEQ in DEXTROSE 5%/0.45% SOD CHL 1,000 ML 100 MEQ IV CONT (10:24)
[2022-01-01] MEDS: methylPREDNISolone SOD SUCC 40 MG VIAL IV PUSH ×3 (10:24→23:42)
--- NOTE | 2022-01-01 11:07 | ECG_ITS ---
Measurements Intervals Taylor Rate: 55 P: 59 OR: 146 QRS: 77 QRSD: 88 T: 34 QT: 462 QTc: 446 Interpretive Statements SINUS BRADYCARDIA WITH MARKED SINUS ARRHYTHMIA INCOMPLETE RIGHT BUNDLE BRANCH BLOCK BORDERLINE ST-T WAVE ABNORMALITY- INFERIOR LEADS BASELINE ARTIFACT- II, AVR, V1 BORDERLINE ECG Electronically Signed On 01-01-2022 14:19:29 CDT by Ac Santana D.O.
--- NOTE | 2022-01-01 11:08 | PM.IMPN ---
Progress Note: A&P Assessment and Plan (1) Cholecystitis with cholelithiasis: Code(s): K80.10 - Calculus of gallbladder with chronic cholecystitis without obstruction Status: Acute Assessment and Plan: CT and US demonstrate gallstones with gallbladder wall thickening. RUQ pain noted on exam. Patient endorses worsening RUQ pain after eating. - General surgery consulted and appreciate recommendations. - Continue Zosyn 3.375 mg IV Q6 hours. Antibiotic day 3. Transition to PO when able to tolerate diet. - Clear liquid diet. - Pain control with IV Morphine PRN and Acetaminophen PRN. - Continue IV hydration. (2) Terminal ileitis: Code(s): K50.00 - Crohn's disease of small intestine without complications Status: Acute Assessment and Plan: CT with persistent terminal ileitis 35 cm from ileocecal valve. Patient endorses longstanding loose stool with intermittent mucous and blood, as well as 30 pound weight loss. H/O iron deficiency anemia. - Consult GI and appreciate recommendations. - Serum iron and saturation low; Vitamin D 27.4 insufficiency. Normal B12 and folate. - Inflammatory bowel work-up pending. - Possible colonoscopy Tuesday 01/02 if patient can tolerate prep. - Methylprednisone 40 mg IV Q6 hours initiated by GI. (3) Pyelonephritis: Code(s): N12 - Tubulo-interstitial nephritis, not specified as acute or chronic Status: Acute Assessment and Plan: Noted on 12/28 CT scan with left renal pelvis and proximal left ureter with enhancing wall suggestive of pyelonephritis. UA concerning for infection on 12/28 and urine culture pansensitive E.coli. Patient was unable to take oral antibiotic. Left CVA and suprapubic tenderness on admission exam. - Continue Zosyn for UTI and cholecystitis. - Monitor WBC and fevers. - Monitor I/O. - Repeat urine culture without growth. (4) Iron deficiency anemia: Qualifiers: Iron deficiency anemia type: unspecified iron deficiency Qualified Code(s): D50.9 - Iron deficiency anemia, unspecified Code(s): D50.9 - Iron deficiency anemia, unspecified Status: Chronic Assessment and Plan: H/H 10.. She reports prior h/o iron deficiency anemia and takes a Flintstones multivitamin daily. She endorses intermittent, small bright red blood in stool. - ferrous sulfate 325 mg daily. - Monitor H/H. Hgb 8.5 today, decreased from 10.7 prior to receiving anticoagulation. May be dilutional component as she has had no stools. Repeat H/H at 1500 on 12/31 9.4/29.9. - 01/01 H/H 8.6/28. scant stool today without blood, per patient. - Would like to continue anticoagulation if possible d/t possible inflammatory bowel disease. (5) Nephrolithiasis: Code(s): N20.0 - Calculus of kidney Status: Acute Assessment and Plan: Bilateral nephrolithiasis noted on CT 1- 11 mm, nonobstructing. H/O kidney stones. Likely chronic and not cause of acute pain. - Continue pain control and IVF as above. (6) Depression: Qualifiers: Depression Type: unspecified Qualified Code(s): F32.A - Depression, unspecified Code(s): F32.A - Depression, unspecified Status: Chronic Assessment and Plan: She endorses situational depression from recent move, miscarriages and being ill. No suicidal ideation. Patient is tearful today. - Continue sertraline at home dose. - Therapeutic communication given. Monitor mood. Plan CODE STATUS: FULL CODE Disposition: home when medically stable. Time Spent With Patient Time with patient: 15 - 25 minutes Subjective Date/time seen: 01/01/22 11:08 Interval history: Patient is a 26 yo female with medical history of kidney stones, iron deficiency anemia, ADHD, depression, anxiety, hemiplegic migraines and two recent spontaneous miscarriages in the past 6 months. She presented to the ED for evaluation of LLQ and RUQ pain for 2 days with kendall
[2022-01-01] MEDS: KCL 20 MEQ/D5/0.45% SOD CHL 1,000 ML 100 ML IV CONT ×2 (12:58→23:36)
[2022-01-01] MEDS: polyethylene glycoL 3350 238 GM BOTTLE PO (12:58)
[2022-01-01] MEDS: HYDROmorphone HCL INJ (*CRX) 1 MG/ML SYR 0.5 MG IV PUSH ×4 (13:02→23:36)
[2022-01-01 14:00] VITALS: BP 120/71; PULSE 63; RESP 16; TEMP 36; O2SAT 99
[2022-01-01] MEDS: BISACODYL 5 MG TABLET EC 10 MG PO ×2 (14:54→20:17)
[2022-01-01] MEDS: LORazepam (*CRX) 0.5 MG TABLET PO (20:20)
[2022-01-01 22:00] VITALS: BP 141/64; PULSE 60; RESP 22; TEMP 35.9; O2SAT 99
[2022-01-02] VITALS (9 sets, daily range): BP systolic 115–128; BP diastolic 70–86; PULSE 46–85; RESP 13–20; TEMP 35.8–36.6; O2SAT 96–100
[2022-01-02] MEDS: MAGNESIUM CITRATE 300 ML BTL 180 ML PO (04:28)
[2022-01-02] MEDS: BISACODYL 5 MG TABLET EC 10 MG PO (04:28)
[2022-01-02] MEDS: HYDROmorphone HCL INJ (*CRX) 1 MG/ML SYR 0.5 MG IV PUSH ×7 (04:29→23:53)
[2022-01-02] MEDS: methylPREDNISolone SOD SUCC 40 MG VIAL IV PUSH ×3 (06:07→17:09)
[2022-01-02 07:24] LABS: Basophils Percent Auto 0.1 % (0.2-1.2); Hematocrit 31.3 % (37.0-47.0); Hemoglobin 9.8 g/dL (12.0-15.0); Immature Granulocyte Absolute 0.04 K/mm3 (0.00-0.031); Immature Granulocyte Percent A 0.5 % (0-0.5); Lymphocytes Absolute Auto 0.89 K/mm3 (0.9-3.2); Lymphocytes Percent Auto 10.9 % (18.3-44.2); Mean Corpuscular HGB Conc 31.3 g/dl (32-36); Mean Corpuscular Hemoglobin 22.6 pg (26-34); Mean Corpuscular Volume 72.1 fl (80-100); Mean Platelet Volume 11.4 fl (7.4-10.4); Monocytes Absolute Auto 0.2 K/mm3 (0.1-0.6); Monocytes Percent Auto 2.2 % (2.6-8.5); Neutrophils Absolute Auto 7.1 K/mm3 (1.3-6.7); Neutrophils Percent Auto 86.3 % (45.5-73.1); Platelet Count Result 398 k/mm3 (150-375); Red Blood Count 4.34 M/mm3 (4.2-5.4); Red Cell Distribution Width 17.9 % (11.5-14.5); White Blood Count 8.2 K/mm3 (4.5-10.0)
[2022-01-02 07:56] LABS: Alanine Aminotransferase 51 U/L (6-35); Albumin Level 3.8 g/dL (3.5-5.1); Alkaline Phosphatase 95 U/L (38-126); Anion Gap 10 mmol/L (8-16); Aspartate Amino Transferase 33 U/L (14-36); Bilirubin,Total 0.3 mg/dL (0.2-1.3); Carbon Dioxide 26 mmol/L (22-30); Chloride 103 mmol/L (98-107); Estimated CRCL calculation 120 ml/min; Estimated Glomerular Filt Rate > 60; Glucose 192 mg/dL (65-110); Potassium 3.9 mmol/L (3.4-5.0); Sodium 139 mmol/L (137-145)
[2022-01-02 08:09] LABS: Platelet Estimate Adequate (Adequate); Poikilocytosis 1+ (NORMAL)
[2022-01-02 08:10] LABS: Acanthocytes 1+ (NORMAL); Burr Cells 1+ (NORMAL); Crenated RBC 1+ (NORMAL)
[2022-01-02 08:28] LABS: Blood Urea Nitrogen < 2 mg/dL (7-17)
[2022-01-02] MEDS: ONDANSETRON INJ 4 MG/2 ML VIAL IV PUSH ×3 (08:57→23:41)
--- NOTE | 2022-01-02 09:49 | PCNFU ---
Nutrition Follow-Up Complete: Involuntary weight loss related to inadequate energy intake as a result of altered GI function as evidenced by pt report of 30# loss in 3 months, chronic nausea and vomiting. Goal:Meet nutritional needs. Pt is not progressing towards goal Pt current nutrition is NPO. Nutrition recommendation: Advance to clear liquids post colonoscopy Last recorded weight is 67.7 kg - stable at this time. Noted significant weight loss prior d/t nausea/vomiting Bowel Motility: +BM 01/01 Labs Reviewed: BUN:2, CR:0.5, Glu:192 Meds Noted:lovenox, solumedrol, zofran Skin: WNL Additional Notes: Pt with possible crohns disease, colonoscopy scheduled for today. NPO at this time, was on clear liquids with nausea and vomiting noted. Solumedrol started to reduce inflammation in GI tract. Will monitor for diet restart and liquids. Monitor for diet start, advancement, intake, wt, labs. Follow up in 3 days.
--- NOTE | 2022-01-02 11:15 | PC.NURSE ---
pt off floor at this time via stretcher for surgery.
--- NOTE | 2022-01-02 11:26 | WPDANESEPPF ---
Anes - Initial Pre Proc Eval Procedure: Operation Date: 01/02/22 13:45 Proposed Procedures p Colonoscopy - Luis F Luna MD Date/Time: 01/02/22 11:26 Surgeon: Alva Lora MD Pre Op Diagnosis: Intractable nausea and vomiting/cholelithiasis/ter Patient Data Age: 26 Gender: F Height: 1.6 m Weight: 67.7 kg Last Vital Signs Temp 36.3 C L 01/02/22 06:00 Pulse 51 L 01/02/22 06:00 Resp 16 01/02/22 06:00 BP 116/75 01/02/22 06:00 Pulse Ox 100 01/02/22 06:00 O2 Del Method Room Air 01/02/22 08:00 Allergies Allergy/AdvReac Type Severity Reaction Status Date / Time No Known Allergies Allergy Verified 01/02/22 11:24 Home Medications Medication Instructions Recorded Confirmed Type acetaminophen 500 mg capsule 500 mg PO Q6H PRN fever or pain 12/28/21 12/30/21 Rx #30 caps cephalexin 500 mg capsule 500 mg PO Q8H 10 days #30 caps 12/28/21 12/30/21 Rx dicyclomine 10 mg capsule 10 mg PO TID 5 days #15 caps 12/28/21 12/30/21 Rx ibuprofen 400 mg tablet 400 mg PO TID PRN fever or pain 10 12/28/21 12/30/21 Rx days #30 tabs ondansetron 4 mg disintegrating 4 mg PO Q8H PRN nausea and 12/28/21 12/30/21 Rx tablet vomiting 7 days #20 tabs dextroamphetamine-amphetamine ER 20 mg PO DAILY 12/30/21 12/30/21 History 20 mg 24hr capsule,extend release (Adderall XR) lorazepam 0.5 mg tablet (Ativan) 0.5 mg PO DAILY PRN Anxiety 12/30/21 12/30/21 History sertraline 100 mg tablet 150 mg PO DAILY 12/30/21 12/30/21 History sertraline 50 mg tablet 150 mg PO DAILY 12/30/21 12/30/21 History Laboratory Tests 01/02/22 01/02/22 06:47 06:47 WBC 8.2 K/mm3 K/mm3 (4.5-10.0) RBC 4.34 M/mm3 M/mm3 (4.2-5.4) Hgb 9.8 g/dL L g/dL (12.0-15.0) Hct 31.3 % L % (37.0-47.0) MCV 72.1 fl L fl (80-100) MCH 22.6 pg L pg (26-34) MCHC 31.3 g/dl L g/dl (32-36) RDW 17.9 % H % (11.5-14.5) Plt Count 398 k/mm3 H k/mm3 (150-375) MPV 11.4 fl H fl (7.4-10.4) Immature Gran % (Auto) 0.5 % % (0-0.5) Neut % (Auto) 86.3 % H % (45.5-73.1) Lymph % (Auto) 10.9 % L % (18.3-44.2) [place] % (Auto) 2.2 % L % (2.6-8.5) Eos % (Auto) 0.0 % % (0-4.4) Baso % (Auto) 0.1 % L % (0.2-1.2) Lymph # (Auto) 0.89 K/mm3 L K/mm3 (0.9-3.2) [place] # (Auto) 0.2 K/mm3 K/mm3 (0.1-0.6) Eos # (Auto) 0.0 K/mm3 K/mm3 (0-0.3) Baso # (Auto) 0.0 K/mm3 K/mm3 (0.0-0.1) Abs Immat Gran (auto) 0.04 K/mm3 H K/mm3 (0.00-0.031) Absolute Neuts (auto) 7.1 K/mm3 H K/mm3 (1.3-6.7) Absolute Nucleated RBC 0.0 K/mm3 K/mm3 (0.0-0.012) Nucleated RBC % 0.0 % % (0.0-0.2) Platelet Estimate Adequate (Adequate) Poikilocytosis 1+ (NORMAL) [place] Cells 1+ (NORMAL) Crenated Cell 1+ (NORMAL) Acanthocytes (Spur) 1+ (NORMAL) Sodium 139 mmol/L mmol/L (137-145) Potassium 3.9 mmol/L mmol/L (3.4-5.0) Chloride 103 mmol/L mmol/L (98-107) Carbon Dioxide 26 mmol/L mmol/L (22-30) Anion Gap 10 mmol/L mmol/L (8-16) BUN < 2 mg/dL L mg/dL (7-17) Creatinine 0.50 mg/dL L mg/dL (0.7-1.0) Estim Creat Clear Calc 120 ml/min ml/min Estimated GFR > 60 (59 - ) Glucose 192 mg/dL H mg/dL (65-110) Calcium 9.0 mg/dL mg/dL (8.4-10.2) Total Bilirubin 0.3 mg/dL mg/dL (0.2-1.3) AST 33 U/L U/L (14-36) ALT 51 U/L H U/L (6-35) Alkaline Phosphatase 95 U/L U/L (38-126) Total Protein 7.0 g/dL g/dL (6.3-8.2) Albumin 3.8 g/dL g/dL (3.5-5.1) Patient hx anesthesia problems: none Family hx anesthesia problems: none Results Review: All pre-operative results and documents have been reviewed as part of the pre-operative evaluation. [facility] Past Medical History Medical History (Updated 12/31/21 @ 08:03 by Halima Jesus
--- NOTE | 2022-01-02 12:24 | PC.NURSE ---
pt in room back from surgery.
[2022-01-02] MEDS: KCL 20 MEQ/D5/0.45% SOD CHL 1,000 ML 100 ML IV CONT (12:29)
[2022-01-02] MEDS: LORazepam INJ (*CRX) 2 MG/ML VIAL 1 MG IV PUSH (12:29)
--- NOTE | 2022-01-02 13:38 | PM.IMPN ---
Progress Note: A&P Assessment and Plan (1) Cholecystitis with cholelithiasis: Code(s): K80.10 - Calculus of gallbladder with chronic cholecystitis without obstruction Status: Acute Assessment and Plan: CT and US demonstrate gallstones with gallbladder wall thickening. RUQ pain noted on exam. Patient endorses worsening RUQ pain after eating. - General surgery consulted and appreciate recommendations. - Continue Zosyn 3.375 mg IV Q6 hours. Antibiotic day 4. Transition to PO when able to tolerate diet. - NPO for colonoscopy. - Pain control with IV Diluadid PRN. - Continue IV hydration. (2) Terminal ileitis: Code(s): K50.00 - Crohn's disease of small intestine without complications Status: Acute Assessment and Plan: CT with persistent terminal ileitis 35 cm from ileocecal valve. Patient endorses longstanding loose stool with intermittent mucous and blood, as well as 30 pound weight loss. H/O iron deficiency anemia. - Consult GI and appreciate recommendations. - Serum iron and saturation low; Vitamin D 27.4 insufficiency. Normal B12 and folate. - Inflammatory bowel work-up pending. - colonoscopy 01/02 normal colon. Small bowel follow-through recommended and pending. - Methylprednisone 40 mg IV Q6 hours started 01/01. (3) Pyelonephritis: Code(s): N12 - Tubulo-interstitial nephritis, not specified as acute or chronic Status: Acute Assessment and Plan: Noted on 12/28 CT scan with left renal pelvis and proximal left ureter with enhancing wall suggestive of pyelonephritis. UA concerning for infection on 12/28 and urine culture pansensitive E.coli. Patient was unable to take oral antibiotic. Left CVA and suprapubic tenderness on admission exam. - Continue Zosyn for UTI and cholecystitis. Transition to oral when taking PO. +emesis today 01/02. - Monitor WBC and fevers. - Monitor I/O. - Repeat urine culture without growth. (4) Iron deficiency anemia: Qualifiers: Iron deficiency anemia type: unspecified iron deficiency Qualified Code(s): D50.9 - Iron deficiency anemia, unspecified Code(s): D50.9 - Iron deficiency anemia, unspecified Status: Chronic Assessment and Plan: H/H 10.. She reports prior h/o iron deficiency anemia and takes a Flintstones multivitamin daily. She endorses intermittent, small bright red blood in stool. - ferrous sulfate 325 mg daily. - Monitor H/H. Hgb 8.5 today, decreased from 10.7 prior to receiving anticoagulation. May be dilutional component as she has had no stools. Repeat H/H at 1500 on 12/31 9.4/29.9. - 01/01 H/H 8.6/28. scant stool today without blood, per patient. - 01/02 H/H 9.8/31. Stable. - continue lovenox DVT prophylaxis. (5) Nephrolithiasis: Code(s): N20.0 - Calculus of kidney Status: Acute Assessment and Plan: Bilateral nephrolithiasis noted on CT 1- 11 mm, nonobstructing. H/O kidney stones. Likely chronic and not cause of acute pain. - Continue pain control and IVF as above. - Unlikely source of pain. (6) Depression: Qualifiers: Depression Type: unspecified Qualified Code(s): F32.A - Depression, unspecified Code(s): F32.A - Depression, unspecified Status: Chronic Assessment and Plan: She endorses situational depression from recent move, miscarriages and being ill. No suicidal ideation. Patient is tearful today. - Continue sertraline at home dose. - with anxiety. Ativan 1 mg IV given x1. (7) Hemorrhagic cyst of left ovary: Onset Date: Unknown Code(s): N83.202 - Unspecified ovarian cyst, left side Status: Acute Plan CODE STATUS: FULL CODE Disposition: home when medically stable. Subjective Date/time seen: 01/02/22 13:38 Interval history: Patient is a 26 yo female with medical history of kidney stones, iron deficiency anemia, ADHD, depression, anxiety, hemiplegic migraines and two re
--- NOTE | 2022-01-02 16:06 | PM.PNGS ---
Progress Note: A&P Assessment and Plan (1) Cholecystitis with cholelithiasis: Code(s): K80.10 - Calculus of gallbladder with chronic cholecystitis without obstruction Status: Acute Assessment and Plan: Seems to be improving. Still minimal symptoms of the gallbladder. Tolerating a regular diet. No nausea or vomiting today. Colonoscopy today was normal. GI recommending small bowel follow through. Will continue to follow. (2) Terminal ileitis: Code(s): K50.00 - Crohn's disease of small intestine without complications Status: Acute (3) Pyelonephritis: Code(s): N12 - Tubulo-interstitial nephritis, not specified as acute or chronic Status: Acute (4) Hemorrhagic cyst of left ovary: Onset Date: Unknown Code(s): N83.202 - Unspecified ovarian cyst, left side Status: Acute Plan I have discussed the patient's case and plan of care with Dr. Cantor. Subjective Subjective Date/Time Seen: 01/02/22 16:06 Patient reports: feels better, tolerating a regular diet, flatus, bowel movement and afebrile Interval history: Patient seen and examined. Chart reviewed. She reports feeling much better today. She had the colonoscopy earlier today and reports eating solids this afternoon and tolerating this well. Reportedly had some lower abdominal pain earlier today, but no abdominal pain at the time of my exam. No nausea. Review of Systems Review of Systems: All systems reviewed & are unremarkable except as noted in HPI and below Exam Const: General: comfortable and no acute distress Orientation/consciousness: patient oriented x3 GI: Inspection: non-distended GI Palp: Yes Soft to palpation, Yes Tenderness to palpation present (GI) (mild LLQ and RLQ, reportedly improved, very minimal tenderness in RUQ), No Guarding due to palpation present (GI) and No Rebound tenderness present Auscultation: normal bowel sounds Objective Data Vital Signs Vital Signs: Vital Signs - 24 hr 01/01/22 20:00 01/01/22 22:00 01/02/22 06:00 Temperature 96.7 F L 97.4 F L Pulse Rate 60 51 L Respiratory Rate 22 H 16 Blood Pressure 141/64 H 116/75 Pulse Oximetry 99 100 Oxygen Delivery Room Air 01/02/22 08:00 01/02/22 11:25 01/02/22 11:56 Temperature 97.6 F Pulse Rate 54 L 46 L Respiratory Rate 16 16 Blood Pressure 116/75 115/71 Pulse Oximetry 100 100 Oxygen Delivery Room Air Room Air Room Air 01/02/22 12:06 01/02/22 12:16 01/02/22 12:35 Temperature 96.9 F L Pulse Rate 48 L 47 L 56 L Respiratory Rate 16 20 13 Blood Pressure 123/82 126/72 128/86 Pulse Oximetry 100 100 100 Oxygen Delivery Room Air Room Air 01/02/22 09:18 01/02/22 14:00 Temperature 97.8 F Pulse Rate 85 Respiratory Rate 15 Blood Pressure 127/79 Pulse Oximetry 96 100 Oxygen Delivery Room Air Intake/Output Intake/Output: Intake & Output 12/30/21 12/31/21 01/01/22 01/02/22 23:59 23:59 23:59 23:59 Intake Total 2680 3780 3800 1630 Output Total 450 9 Balance 2680 3330 3800 1621 Meds/Results Medications: Active Medications Generic Name Dose Route Start Last Admin Trade Name Freq PRN Reason Stop Dose Admin Acetaminophen 500 mg 12/30/21 14:44 Acetaminophen 500 Mg Tablet PO Q6H PRN fever or pain rated 1-3 Enoxaparin Sodium 40 mg 12/31/21 09:00 01/02/22 08:04 Enoxaparin 40 Mg/0.4 Ml Syringe SUB-Q Not Given DAILY YEISON Ferrous Sulfate 324 mg 12/31/21 08:00 01/02/22 08:03 Ferrous Sulfate 324 Mg Tablet PO Not Given DAILY@0800 YEISON Hydromorphone HCl 0.5 mg 01/01/22 11:07 01/02/22 16:02 Hydromorphone Hcl Inj (*Crx) 1 Mg/Ml Syr IV PUSH 0.5 mg Q3H PRN Administration Pain Rated 7-10 Piperacillin/Tazobactam/Dextrose 3.375 gm in 50 mls @ 100 mls/hr 12/30/21 18:00 01/02/22 13:00 Zosyn 3.375 Gm/D5w 50ml Pm IVPB Infused Q6H YEISON Infusion Potassium Chloride/Dextrose/Sod Cl 1,000 mls @ 100 mls/hr 01/01/22 11:15 01/02/22 12:2
[2022-01-02] MEDS: ACETAMINOPHEN 500 MG TABLET PO (17:09)
[2022-01-02] MEDS: LORazepam (*CRX) 0.5 MG TABLET PO (20:45)
[2022-01-03] MEDS: methylPREDNISolone SOD SUCC 40 MG VIAL IV PUSH ×2 (00:20→05:45)
[2022-01-03] MEDS: KCL 20 MEQ/D5/0.45% SOD CHL 1,000 ML 100 ML IV CONT ×2 (01:00→14:11)
[2022-01-03] MEDS: HYDROmorphone HCL INJ (*CRX) 1 MG/ML SYR 0.5 MG IV PUSH ×2 (03:01→11:09)
[2022-01-03 05:39] LABS: Hematocrit 29.6 % (37.0-47.0); Mean Corpuscular HGB Conc 30.4 g/dl (32-36); Mean Corpuscular Hemoglobin 22.5 pg (26-34); Mean Platelet Volume 11.1 fl (7.4-10.4); Platelet Count Result 398 k/mm3 (150-375); Red Cell Distribution Width 18.6 % (11.5-14.5); White Blood Count 20.8 K/mm3 (4.5-10.0)
[2022-01-03] MEDS: ACETAMINOPHEN 500 MG TABLET PO ×2 (05:41→13:48)
[2022-01-03 05:49] LABS: Alanine Aminotransferase 42 U/L (6-35); Albumin Level 3.4 g/dL (3.5-5.1); Alkaline Phosphatase 76 U/L (38-126); Anion Gap 10 mmol/L (8-16); Aspartate Amino Transferase 29 U/L (14-36); Bilirubin,Total 0.1 mg/dL (0.2-1.3); Calcium 9.1 mg/dL (8.4-10.2); Carbon Dioxide 26 mmol/L (22-30); Chloride 103 mmol/L (98-107); Estimated CRCL calculation 102 ml/min; Estimated Glomerular Filt Rate > 60; Glucose 161 mg/dL (65-110); Potassium 4.7 mmol/L (3.4-5.0); Sodium 139 mmol/L (137-145)
[2022-01-03 05:51] LABS: Blood Urea Nitrogen < 2 mg/dL (7-17)
[2022-01-03 06:00] VITALS: BP 134/74; PULSE 67; RESP 20; TEMP 35.9; O2SAT 100
[2022-01-03 07:12] LABS: Band Neutrophils Percent 4 % (0-6); Lymphocytes Absolute Manual 1.66 K/mm3 (1.1-4.5); Monocytes Percent Manual 1 % (3-9); Neutrophils Absolute Manual 18.92 K/mm3 (1.7-7.2); Neutrophils Percent Manual 87 % (46-73); Platelet Estimate Adequate (Adequate); Total Cells Counted 100
[2022-01-03 07:13] LABS: Anisocytosis 1+ (NORMAL); Hypochromasia 1+ (NORMAL); Microcytosis 1+ (NORMAL); Ovalocytes 1+ (NORMAL); Poikilocytosis 1+ (NORMAL)
--- NOTE | 2022-01-03 07:58 | WPDGIPROGNO ---
Progress Note: A&P Assessment and Plan (1) Terminal ileitis: Code(s): K50.00 - Crohn's disease of small intestine without complications Status: Acute Assessment and Plan: The CT scan suggested possible inflammatory bowel disease but it was a long segment that appeared to be narrowed. Small bowel series has just been done and is entirely normal. Consequently there is no evidence that she has inflammatory bowel disease. (2) Abdominal pain: Code(s): R10.9 - Unspecified abdominal pain Status: Acute Assessment and Plan: Having be eliminated inflammatory bowel disease as the source of her pain, it appears that is still primarily from her ovarian problem which explains why her pain is primarily left lower quadrant. (3) Nephrolithiasis: Code(s): N20.0 - Calculus of kidney Status: Acute Assessment and Plan: Asymptomatic at this point (4) Hemorrhagic cyst of left ovary: Onset Date: Unknown Code(s): N83.202 - Unspecified ovarian cyst, left side Status: Acute Assessment and Plan: this remains her underlying major problem. (5) Spontaneous miscarriage: Code(s): O03.9 - Complete or unspecified spontaneous without complication Status: Acute (6) Chronic diarrhea: Code(s): K52.9 - Noninfective gastroenteritis and colitis, unspecified Status: Acute Assessment and Plan: If she continues have bowel issues, we will treat this as IBS- D. from my perspective she can be discharged and follow up with me in the office. Subjective Date/time seen: Krista Lima is a 26 year old female? was admitted through the emergency room with abdominal pain.? She has recently had a miscarriage.? She then began having more pain than usual.? She often has pain in the left lower quadrant and has been told in the past that she has hemorrhagic cyst which might be leaking from time to time.? That diagnosis was made in [place].? She has recently relocated to this area.? She also has had chronic loose stools, most of her life.? At Times she would see some blood tinged mucus in her stools as well.? She has had pain throughout the abdomen recently but a little worse on the left than on the right.? She was seen in the emergency room and thought to have urinary tract infection and sent home on Keflex but has not been able to keep the medication down and in fact? has been vomiting now and cannot keep anything down the last several days.? She does not believe that she has had a fever.? [place] [address] and blood pressure is elevated.? She also has a history of kidney stones and CT scan here does show bilateral nonobstructing stones.? The CT also shows terminal ileitis in the distal 35 cm.? She states that her weight fluctuates but she has had no dramatic recent weight loss.? She has been started on antibiotics, Rocephin, which was started in the emergency room 01/01/22? 10:05 ?she was vomiting last night and early this morning.? She is feeling better now.? She thinks that she might be able to tolerate clear liquids.? Because prep for colonoscopy will involve quite a bit of liquid, I do not know that she would be able to handle that today. 01/03/22 07:58 She is still having pain but trying to get by with Tylenol. She in general, feels uncomfortable. She did eat some last night. She had been pushing to try to go home and finish investigation as an outpatient but admits that she is not feeling that well, not any better than when she came in except that she is no longer vomiting. We discussed her colonoscopy which was normal including the last several cm of the terminal ileum. Because it I am still concerned about possible Crohn's disease I am going to schedule her for upper GI and small-bowel follow-through. Serology for IBD still pending. Small-bowel series has come back negative. She may have irritable bowel syndrome, but this does not
[2022-01-03 08:00] VITALS: O2SAT 100
--- NOTE | 2022-01-03 08:38 | PM.IMPN ---
Progress Note: A&P Assessment and Plan (1) Cholecystitis with cholelithiasis: Code(s): K80.10 - Calculus of gallbladder with chronic cholecystitis without obstruction Status: Acute Assessment and Plan: 12/30/21 CT and US demonstrate gallstones with gallbladder wall thickening. RUQ pain noted on exam. Patient endorses worsening RUQ pain after eating. General surgery consulted and appreciate recommendations. 01/03/22 Continue Zosyn 3.375 mg IV Q6 hours. Antibiotic day 5. Transition to PO when able to tolerate diet. Pain control with IV Diluadid PRN. Continue IV hydration. (2) Terminal ileitis: Code(s): K50.00 - Crohn's disease of small intestine without complications Status: Acute Assessment and Plan: 12/30/21 CT with persistent terminal ileitis 35 cm from ileocecal valve. Patient endorses longstanding loose stool with intermittent mucous and blood, as well as 30 pound weight loss. H/O iron deficiency anemia. - Consult GI and appreciate recommendations. - Serum iron and saturation low; Vitamin D 27.4 insufficiency. Normal B12 and folate. - Inflammatory bowel work-up pending. 01/01/22 Methylprednisone 40 mg IV Q6 hours x8 days given 01/02/22 colonoscopy- normal colon. 01/03/22 Small bowel follow-through recommended and pending. WBC 20 today. Afebrile. Likely increased from steroids. (3) Pyelonephritis: Code(s): N12 - Tubulo-interstitial nephritis, not specified as acute or chronic Status: Acute Assessment and Plan: Noted on 12/28 CT scan with left renal pelvis and proximal left ureter with enhancing wall suggestive of pyelonephritis. UA concerning for infection on 12/28 and urine culture pansensitive E.coli. Patient was unable to take oral antibiotic. Left CVA and suprapubic tenderness on admission exam. 12/30/21 Repeat urine culture without growth. 01/03/22 Continue Zosyn for UTI and cholecystitis, antibiotic day 5. Transition to oral when taking PO. +emesis on 01/02. (4) Iron deficiency anemia: Qualifiers: Iron deficiency anemia type: unspecified iron deficiency Qualified Code(s): D50.9 - Iron deficiency anemia, unspecified Code(s): D50.9 - Iron deficiency anemia, unspecified Status: Chronic Assessment and Plan: H/H 10.. She reports prior h/o iron deficiency anemia and takes a Flintstones multivitamin daily. She endorses intermittent, small bright red blood in stool. - ferrous sulfate 325 mg daily. 12/31/21 Monitor H/H. Hgb 8.5 today, decreased from 10.7 prior to receiving anticoagulation. May be dilutional component as she has had no stools. Repeat H/H at 1500 on 12/31 9.4/.9. / H/H 8.6. scant stool today without blood, per patient. 01/02 H/H 9.8. Stable. 01/03/22 H/H 03/09. continue lovenox DVT prophylaxis. (5) Nephrolithiasis: Code(s): N20.0 - Calculus of kidney Status: Acute Assessment and Plan: Bilateral nephrolithiasis noted on CT 1- 11 mm, nonobstructing. H/O kidney stones. Likely chronic and not cause of acute pain. - Continue pain control and IVF as above. - Unlikely source of pain. (6) Depression: Qualifiers: Depression Type: unspecified Qualified Code(s): F32.A - Depression, unspecified Code(s): F32.A - Depression, unspecified Status: Chronic Assessment and Plan: She endorses situational depression from recent move, miscarriages and being ill. No suicidal ideation. Patient is tearful today. - Continue sertraline at home dose. - with anxiety. Ativan 1 mg IV given x1 on 01/02/22. (7) Hemorrhagic cyst of left ovary: Onset Date: Unknown Code(s): N83.202 - Unspecified ovarian cyst, left side Status: Acute Assessment and Plan: Noted on CT 12/28. H/H. May be contributing to LLQ pain. Plan CODE STATUS: FULL CODE Disposition: home when medically stable. Time Spent With Patient Time with patient: 15 - 25 minutes S
--- NOTE | 2022-01-03 11:25 | PM.PNGS ---
Progress Note: A&P Assessment and Plan (1) Cholecystitis with cholelithiasis: Code(s): K80.10 - Calculus of gallbladder with chronic cholecystitis without obstruction Status: Acute Assessment and Plan: Colonoscopy yesterday was normal. She is still having abdominal pain, which seems to be mostly lower abdominal pain and primarily tender in the lower abdomen. Nausea has improved. Will await UGI small bowel follow through results. IBD panel pending. Depending on the results of her GI workup, we could consider ordering a HIDA scan to further evaluate the gallbladder if she continues to have persistent pain without a clear etiology. Will continue to follow. (2) Terminal ileitis: Code(s): K50.00 - Crohn's disease of small intestine without complications Status: Acute Assessment and Plan: Continue management per GI. Currently on IV Zosyn. WBC up to 20K today. This could be related to the IV steroids. She is afebrile. See plan above. Trend labs. (3) Pyelonephritis: Code(s): N12 - Tubulo-interstitial nephritis, not specified as acute or chronic Status: Acute (4) Hemorrhagic cyst of left ovary: Onset Date: Unknown Code(s): N83.202 - Unspecified ovarian cyst, left side Status: Acute Plan I have discussed the patient's case and plan of care with Dr. Cantor. Subjective Subjective Date/Time Seen: 01/03/22 11:25 Patient reports: still having pain ( lower abdominal pain), flatus, bowel movement and afebrile Interval history: Patient seen and examined after starting the Gastrografin small-bowel follow-through study this morning. Per nursing, radiology will be coming up for an additional x-ray. The patient reports having more abdominal pain today after drinking the contrast. She felt her pain and improve some last night and was trying to get by with just Tylenol, although with review of the chart she did receive 3 doses of IV Dilaudid additional to the Tylenol last night. She reports her pain is still persistent in the lower abdomen, but overall her nausea and vomiting has improved. Denies any nausea this morning and tolerated her diet last night. Review of Systems Review of Systems: All systems reviewed & are unremarkable except as noted in HPI and below Exam Const: General: awake and uncomfortable Orientation/consciousness: patient oriented x3 GI: Inspection: non-distended GI Palp: Yes Soft to palpation, Yes Tenderness to palpation present (GI) (Diffusely tender, worse in the lower abdomen), No Guarding due to palpation present (GI), Yes No hepatosplenomegaly present and No Rebound tenderness present Auscultation: normal bowel sounds Objective Data Vital Signs Vital Signs: Vital Signs - 24 hr 01/02/22 11:56 01/02/22 12:06 01/02/22 12:16 Temperature Pulse Rate 46 L 48 L 47 L Respiratory Rate 16 16 20 Blood Pressure 115/71 123/82 126/72 Pulse Oximetry 100 100 100 Oxygen Delivery Room Air Room Air Room Air 01/02/22 12:35 01/02/22 14:00 01/02/22 20:00 Temperature 96.9 F L 97.8 F Pulse Rate 56 L 85 Respiratory Rate 13 15 Blood Pressure 128/86 127/79 Pulse Oximetry 100 100 Oxygen Delivery Room Air 01/02/22 22:00 01/03/22 06:00 01/03/22 08:00 Temperature 96.4 F L 96.6 F L Pulse Rate 54 L 67 Respiratory Rate 20 20 Blood Pressure 128/70 134/74 Pulse Oximetry 100 100 100 Oxygen Delivery Room Air Intake/Output Intake/Output: Intake & Output 12/31/21 01/01/22 01/02/22 01/03/22 23:59 23:59 23:59 23:59 Intake Total 3780 3800 3320 550 Output Total 450 709 Balance 3330 3800 2611 550 Meds/Results Medications: Active Medications Generic Name Dose Route Start Last Admin Trade Name Freq PRN Reason Stop Dose Admin Acetaminophen 500 mg 12/30/21 14:44 01/03/22 05:41 Acetaminophen 500 Mg Tablet PO 500 mg Q6H PRN Administration fever or pain rated 1-3 Enoxaparin Sodium 40 mg 12/31/21 09:00 01/03/22
[2022-01-03] MEDS: LORazepam (*CRX) 0.5 MG TABLET PO (12:33)
--- NOTE | 2022-01-03 13:29 | WPDANESPN ---
Anes - Prog Note Post-Op Date/Time: 01/03/22 13:29 Vital Signs: Last Vital Signs Temp 35.9 C L 01/03/22 06:00 Pulse 67 01/03/22 06:00 Resp 20 01/03/22 06:00 BP 134/74 01/03/22 06:00 Pulse Ox 100 01/03/22 08:00 O2 Del Method Room Air 01/03/22 08:00 Pain Score (VAS): 0 I/O: Intake & Output 01/02/22 01/03/22 01/03/22 23:59 07:59 15:59 Intake Total 1690 600 Output Total 700 Balance 990 600 Laboratory Tests 01/03/22 05:27 01/03/22 05:27 01/03/22 01/03/22 05:27 05:27 WBC 20.8 H RBC 4.00 L Hgb 9.0 L Hct 29.6 L MCV 74.0 L MCH 22.5 L MCHC 30.4 L RDW 18.6 H Plt Count 398 H MPV 11.1 H Immature Gran % (Auto) Not Reportable Neut % (Auto) Not Reportable Lymph % (Auto) Not Reportable [place] % (Auto) Not Reportable Eos % (Auto) Not Reportable Baso % (Auto) Not Reportable Lymph # (Auto) Not Reportable [place] # (Auto) Not Reportable Eos # (Auto) Not Reportable Baso # (Auto) Not Reportable Abs Immat Gran (auto) Not Reportable Absolute Neuts (auto) Not Reportable Absolute Nucleated RBC Not Reportable Total Counted 100 Neutrophils % (Manual) 87 H Band Neutrophils % 4 Lymphocytes % (Manual) 8.0 L Monocytes % (Manual) 1 L Nucleated RBC % Not Reportable Abs Neuts (Manual) 18.92 H Abs Lymphs (Manual) 1.66 Abs Monocytes (Manual) 0.20 Platelet Estimate Adequate Hypochromasia 1+ Poikilocytosis 1+ Anisocytosis 1+ Microcytosis 1+ Ovalocytes 1+ Sodium 139 Potassium 4.7 Chloride 103 Carbon Dioxide 26 Anion Gap 10 BUN < 2 L Creatinine 0.60 L Estim Creat Clear Calc 102 Estimated GFR > 60 Glucose 161 H Calcium 9.1 Total Bilirubin 0.1 L AST 29 ALT 42 H Alkaline Phosphatase 76 Total Protein 6.0 L Albumin 3.4 L Patient Feedback: Patient satisfied with anesthetic care.
[2022-01-03] MEDS: FERROUS SULFATE 324 MG TABLET PO (13:48)
[2022-01-03] MEDS: CHOLECALCIFEROL 1,000 UNITS TABLET 2000 UNITS PO (13:48)
[2022-01-03] MEDS: SERTRALINE HCL 50 MG TABLET 150 MG PO (13:48)
[2022-01-03 14:00] VITALS: BP 132/84; PULSE 50; RESP 16; TEMP 36; O2SAT 100
[2022-01-03] MEDS: HYDROcodone/acetaminophen (*CRX) 5-325 MG TABLET 1 TAB PO (15:05)
--- NOTE | 2022-01-03 16:11 | PM.DS ---
DS: Admitting Diagnosis Discharge Date 01/03/2022 1624 Admitting Diagnosis Acute versus chronic cholelithiasis without obstruction Terminal ileitis E.coli complicated UTI Iron deficiency anemia chronic Left ovary hemorrhagic cyst, present prior to admission DS: Discharge Diagnosis Discharge Diagnosis (1) Cholecystitis with cholelithiasis: Code(s): K80.10 - Calculus of gallbladder with chronic cholecystitis without obstruction Status: Acute Assessment and Plan: 12/30/21 CT and US demonstrate gallstones with gallbladder wall thickening. RUQ pain noted on exam. Patient endorses worsening RUQ pain after eating. General surgery consulted and appreciate recommendations. 01/03/22 Continue Zosyn 3.375 mg IV Q6 hours. Antibiotic day 5. Transition to PO when able to tolerate diet. Pain control with IV Diluadid PRN. RUQ pain controlled prior to discharge. Patient transitioned to low fat diet. She will have outpatient follow up with Dr. Cantor for further gallbladder disease work up and possible HIDA scan outpatient. She was transitioned to Augmentin 875-125 mg BID x4 days. (2) Terminal ileitis: Code(s): K50.00 - Crohn's disease of small intestine without complications Status: Acute Assessment and Plan: 12/30/21 CT with persistent terminal ileitis 35 cm from ileocecal valve. Patient endorses longstanding loose stool with intermittent mucous and blood, as well as 30 pound weight loss. H/O iron deficiency anemia. - Consult GI and appreciate recommendations. - Serum iron and saturation low; Vitamin D 27.4 insufficiency. Normal B12 and folate. - Inflammatory bowel work-up pending. 01/01/22 Methylprednisone 40 mg IV Q6 hours x8 doses given 01/02/22 colonoscopy- normal colon. 01/03/22 Small bowel follow normal. IBD labs pending. WBC 20 today, but afebrile. Likely increased from steroids. Patient to follow up with Dr. Luna outpatient. (3) Pyelonephritis: Code(s): N12 - Tubulo-interstitial nephritis, not specified as acute or chronic Status: Acute Assessment and Plan: Noted on 12/28 CT scan with left renal pelvis and proximal left ureter with enhancing wall suggestive of pyelonephritis. UA concerning for infection on 12/28 and urine culture pansensitive E.coli. Patient was unable to take oral antibiotic. Left CVA and suprapubic tenderness on admission exam. 12/30/21 Repeat urine culture without growth. 01/03/22 Continued Zosyn for UTI and cholecystitis, antibiotic day 5. Transitioned to Augmentin PO as above BID x4 days for cholecystitis and will cover complicated UTI. No dysuria or flank pain. (4) Iron deficiency anemia: Qualifiers: Iron deficiency anemia type: unspecified iron deficiency Qualified Code(s): D50.9 - Iron deficiency anemia, unspecified Code(s): D50.9 - Iron deficiency anemia, unspecified Status: Chronic Assessment and Plan: H/H 10.. She reports prior h/o iron deficiency anemia and takes a Flintstones multivitamin daily. She endorses intermittent, small bright red blood in stool. - ferrous sulfate 325 mg daily. 12/31/21 Monitor H/H. Hgb 8.5 today, decreased from 10.7 prior to receiving anticoagulation. May be dilutional component as she has had no stools. Repeat H/H at 1500 on 12/31 9.4/.9. 7/24 H/H 8.6/. scant stool today without blood, per patient. 01/02 H/H 9.8. Stable. 01/03/22 H/H 03/09. Stable. Continue iron supplements at discharge. (5) Nephrolithiasis: Code(s): N20.0 - Calculus of kidney Status: Acute Assessment and Plan: Bilateral nephrolithiasis noted on CT 1- 11 mm, nonobstructing. H/O kidney stones. Likely chronic and not cause of acute pain. - Continue pain control and IVF as above. - Unlikely source of pain. UOP stable. (6) Depression: Qualifiers: Depression Type: unspecified Qualified Code(s): F32.A - Depression, unspecified Code(s): F32.A - Depression, uns
[2022-01-07 18:15] LABS: ANCA Screen Negative (Negative); Myeloperoxidase Ab <1.0 AI (<1.0); Proteinase-3 Ab <1.0 AI (<1.0); S cerevisiae Ab (IgA) 124.9 U (<=20.0); S cerevisiae Ab (IgG) 21.3 U (<=20.0)
== END 2022-01-03 17:40 | disposition home or self-care (01) ==
LOC: ANHED 11:43 → ANH3MEDSUR 11:49
PROVIDERS: General Practice; Internal Medicine Gastroenterology; Admitting Provider Family Medicine; Emergency Provider Emergency Medicine; Visit Provider Nurse Practitioner Family
PROC: 0DJD8ZZ Inspection of Lower Intestinal Tract, Via Natural or Artificial Opening Endoscopic (ICD-10-PCS; CPT 45378; principal; 2022-01-02 13:45)
DX: K80.10 Calculus of gallbladder with chronic cholecystitis without obstruction (principal); K50.00 Crohn's disease of small intestine without complications; N10 Acute pyelonephritis; K52.9 Noninfective gastroenteritis and colitis, unspecified; N20.0 Calculus of kidney; N83.202 Unspecified ovarian cyst, left side; Z20.822 Contact with and (suspected) exposure to COVID-19; D50.9 Iron deficiency anemia, unspecified; F90.9 Attention-deficit hyperactivity disorder, unspecified type; F32.A Depression, unspecified; F41.9 Anxiety disorder, unspecified; F43.21 Adjustment disorder with depressed mood; Z87.442 Personal history of urinary calculi
CPT/HCPCS: 36415; 74176; 74246; 74248; 76705; 80053; 81001; 81025; 82306; 82607; 82728; 82746; 83540; 83550; 83605; 83690; 85014; 85018; 85025; 86036; 86140; 86671; 87086; 93005; 96361; 96365; 96366; 96367; 96372; 96375; 96376; 99285; A9270; C9803; G0378; J0131; J0696; J1170; J1650; J1885; J2060; J2270; J2405; J2543; J2550; J2704; J2765; J2920; J3480; J7030; U0003; U0005

== ENCOUNTER 2022-04-19 19:23 | Emergency (ER) | payer SELFPAY ==
[2022-04-19 21:02] VITALS: BP 121/68; PULSE 77; RESP 14; TEMP 36.9; O2SAT 98
--- NOTE | 2022-04-19 21:25 | ED.GENADULT ---
HPI - General Adult General Chief complaint: Unspecified Stated complaint: sinus problems x 1 month, dizzy Time Seen by Provider: 04/19/22 21:20 History of Present Illness HPI narrative: Pt presents with sinus congestion and pressure for about a month. Pt denies fever. Pt complains of pain in upper teeth and nasal discharge of thick mucous. Pt has developed right ear pain in the last couple of days that is severe. Pt denies vomiting. Related Data Home Medications Medication Instructions Recorded Confirmed dextroamphetamine-amphetamine ER 20 mg PO DAILY 12/30/21 12/30/21 20 mg 24hr capsule,extend release (Adderall XR) lorazepam 0.5 mg tablet (Ativan) 0.5 mg PO DAILY PRN Anxiety 12/30/21 12/30/21 sertraline 100 mg tablet 150 mg PO DAILY 12/30/21 12/30/21 Allergies Allergy/AdvReac Type Severity Reaction Status Date / Time No Known Allergies Allergy Verified 01/02/22 11:24 Review of Systems Review of Systems: All systems reviewed & are unremarkable except as noted in HPI and below PMFSH Past Medical History Medical History (Updated 04/19/22 @ 21:33 by Candelaria De La Garza III, DO) ADHD (attention deficit hyperactivity disorder) Anxiety Depression Hemiplegic migraine Hemorrhagic cyst of left ovary (Unknown) Iron deficiency anemia Nephrolithiasis Surgical History Surgical History History of strabismus surgery Family History Family History Mother Gallbladder disease Schizophrenia Grandparent Gallbladder disease Leukemia Diabetes mellitus Cerebrovascular accident Heart disease Social History Social History Smoking packs per day: 0.33 Smoking cigarettes per day: 6.6 Years smoked: 9 Smoking pack-years: 2.97 Smoking status: Former smoker Tobacco type: e-cigarettes/vaping Second hand tobacco smoke exposure: Yes Alcohol intake: current Alcohol use details: Socially Substance use: current Substance use type: marijuana Other substance usage details: Socially Gender identity (if verbalized by the patient): Female Spiritual care concerns: No Exam Const: General: cooperative, healthy appearing and no acute distress Nutritional Appearance: average body habitus and well nourished Orientation/consciousness: patient oriented x3 Limitations: no limitations HENMT: Head: other (tender over maxillary sinuses) Ears: TM abnormal (right) bulging and erythematous Face/Nose/Sinus: sinus tenderness and Facial tenderness on exam of face and sinuses Mouth: Yes Normal oral and palatal mucosa present Neck: Neck: normal visual inspection Lymphatic: lymphadenopathy Resp: Effort & Inspection: normal respiratory effort Auscultation: clear to auscultation bilaterally Cardio: Rate: regular rate Rhythm: regular rhythm Skin: General skin exam: normal color and no rashes or lesions noted Neuro: General: patient oriented x3 Cranial nerves: Yes CN's II-XII intact bilaterally Speech: normal speech Extrem: General: normal to inspection and full ROM Psych: Appearance: grossly normal Mental Status: mental status grossly normal Speech and movement: Normal speech and movement present Affect: normal affect Attitude: cooperative Thought process: Normal thought process present Thought content: Yes Normal thought content present Course Vital Signs Vital signs: Vital Signs Temperature 98.5 F 04/19/22 21:02 Pulse Rate 77 04/19/22 21:02 Respiratory Rate 14 04/19/22 21:02 Blood Pressure 121/68 04/19/22 21:02 Pulse Oximetry 98 04/19/22 21:02 Oxygen Delivery Room Air 04/19/22 21:02 Temperature 98.5 F 04/19/22 21:02 Pulse Rate 77 04/19/22 21:02 Respiratory Rate 14 04/19/22 21:02 Blood Pressure 121/68 04/19/22 21:02 Pulse Oximetry 98 04/19/22 21:02 Oxygen Delivery Room Air 04/19/22 2
== END 2022-04-19 21:56 | disposition home or self-care (01) ==
LOC: ANHED 21:39
PROVIDERS: Emergency Provider Emergency Medicine
DX: J32.9 Chronic sinusitis, unspecified (principal); F90.9 Attention-deficit hyperactivity disorder, unspecified type; F41.9 Anxiety disorder, unspecified; F32.A Depression, unspecified; D50.9 Iron deficiency anemia, unspecified; Z87.442 Personal history of urinary calculi; Z87.891 Personal history of nicotine dependence
CPT/HCPCS: 99283

== ENCOUNTER 2022-06-25 22:13 | Emergency (ER) | payer MEDICAID, SELFPAY ==
[2022-06-25 22:22] VITALS: BP 125/81; PULSE 104; RESP 18; TEMP 36.3; O2SAT 97
--- NOTE | 2022-06-25 23:01 | ED.GENADULT ---
HPI - General Adult General Chief complaint: Unspecified Stated complaint: multiple cc Time Seen by Provider: 06/25/22 22:52 History of Present Illness HPI narrative: 26-year-old female here for evaluation of sinus pressure, congestion, dental pain, sore throat, right ear pain, swollen lymph nodes for the past 4 months. Patient states that she has been seen in the ED and was diagnosed with a sinus infection, took steroids and antibiotics with transient improvement of her symptoms. Was told to follow-up with primary doctor which she never did. Presents today due to concerns of her longevity of symptoms. No fevers or chills, difficulty swallowing. Related Data Home Medications Medication Instructions Recorded Confirmed dextroamphetamine-amphetamine ER 20 mg PO DAILY 12/30/21 12/30/21 20 mg 24hr capsule,extend release (Adderall XR) lorazepam 0.5 mg tablet (Ativan) 0.5 mg PO DAILY PRN Anxiety 12/30/21 12/30/21 sertraline 100 mg tablet 150 mg PO DAILY 12/30/21 12/30/21 Allergies Allergy/AdvReac Type Severity Reaction Status Date / Time No Known Allergies Allergy Verified 06/25/22 22:26 Review of Systems Review of Systems: Gen.: Denies fevers or chills Eyes: Denies eye pain or visual change ENT: Reports congestion, right ear pain, and dental pain Respiratory: Denies shortness of breath or cough CV: Denies chest pain or palpitations GI: Denies abdominal pain nausea, emesis or diarrhea denies burning, urgency, frequency or hematuria Musculoskeletal: Denies back pain or muscle pain Neuro: Denies numbness, tingling, weakness or focal weakness Skin: Denies rash Except as documented, all other systems reviewed and negative [facility] Past Medical History Medical History ADHD (attention deficit hyperactivity disorder) Anxiety Depression Hemiplegic migraine Hemorrhagic cyst of left ovary (Unknown) Iron deficiency anemia Nephrolithiasis Surgical History Surgical History History of strabismus surgery Family History Family History Mother Gallbladder disease Schizophrenia Grandparent Gallbladder disease Leukemia Diabetes mellitus Cerebrovascular accident Heart disease Social History Social History Smoking packs per day: 0.33 Smoking cigarettes per day: 6.6 Years smoked: 9 Smoking pack-years: 2.97 Smoking status: Former smoker Tobacco type: e-cigarettes/vaping Second hand tobacco smoke exposure: Yes Alcohol intake: current Alcohol use details: Socially Substance use: current Substance use type: marijuana Other substance usage details: Socially Gender identity (if verbalized by the patient): Female Spiritual care concerns: No Exam Narrative: APPEARANCE: Well appearing, no pain in distress, well-nourished. Head: Normocephalic and atraumatic. EYES: PERRLA/EOMI, conjunctivae clear NOSE: No nasal drainage EARS: External ear normal in appearance THROAT: Tender submandibular lymphadenopathy on the left. oropharynx is clear. Mucous membranes are moist. NECK: Supple. No adenopathy, no masses. RESPIRATORY: Airway patent, respirations nonlabored. Clear to auscultation bilaterally, no rales, rhonchi, wheezing. CARDIOVASCULAR: Regular rate and rhythm without murmurs, rubs, or gallops. ABDOMINAL: Normoactive bowel sounds. Soft, nontender, nondistended. No rebound tenderness or guarding. MUSCULOSKELETAL: Extremities are warm and well-perfused. Moves all extremities well. No edema. NEURO: Normal speech. No focal neurologic deficits. SKIN: Skin is warm and dry. No rashes. PSYCHIATRIC: Normal affect/mood. Course Vital Signs Vital signs: Vital Signs Temperature 97.4 F L 06/25/22 22:22 Pulse Rate 104 H 06/25/22 22:22 Respiratory Rate 18
[2022-06-25] MEDS: ACETAMINOPHEN 325 MG TABLET 650 MG PO (23:15)
[2022-06-25] MEDS: predniSONE 20 MG TABLET 40 MG PO (23:51)
[2022-06-25] MEDS: IBUPROFEN 600 MG TABLET PO (23:52)
[2022-06-25] MEDS: DOXYCYCLINE HYCLATE 100 MG TABLET PO (23:52)
[2022-06-26 00:14] LABS: Basophils Absolute Auto 0.1 K/mm3 (0.0-0.1); Basophils Percent Auto 0.8 % (0.2-1.2); Eosinophils Absolute Auto 0.5 K/mm3 (0-0.3); Eosinophils Percent Auto 4.1 % (0-4.4); Hematocrit 37.2 % (37.0-47.0); Hemoglobin 11.6 g/dL (12.0-15.0); Immature Granulocyte Absolute 0.03 K/mm3 (0.00-0.031); Immature Granulocyte Percent A 0.3 % (0-0.5); Lymphocytes Percent Auto 28.3 % (18.3-44.2); Mean Corpuscular HGB Conc 31.2 g/dl (32-36); Mean Corpuscular Hemoglobin 24.2 pg (26-34); Mean Corpuscular Volume 77.5 fl (80-100); Mean Platelet Volume 9.5 fl (7.4-10.4); Monocytes Absolute Auto 0.8 K/mm3 (0.1-0.6); Monocytes Percent Auto 6.9 % (2.6-8.5); Neutrophils Absolute Auto 6.8 K/mm3 (1.3-6.7); Neutrophils Percent Auto 59.6 % (45.5-73.1); Platelet Count Result 458 k/mm3 (150-375); Red Cell Distribution Width 19.1 % (11.5-14.5); White Blood Count 11.3 K/mm3 (4.5-10.0)
[2022-06-26 01:00] LABS: Alanine Aminotransferase 15 U/L (6-35); Albumin Level 4.4 g/dL (3.5-5.1); Alkaline Phosphatase 85 U/L (38-126); Anion Gap 7 mmol/L (8-16); Aspartate Amino Transferase 22 U/L (14-36); Bilirubin,Total 0.2 mg/dL (0.2-1.3); Blood Urea Nitrogen 11 mg/dL (7-17); Carbon Dioxide 30 mmol/L (22-30); Chloride 104 mmol/L (98-107); Estimated Glomerular Filt Rate > 60; Glucose 52 mg/dL (65-110); Potassium 3.6 mmol/L (3.4-5.0); Sodium 141 mmol/L (137-145)
--- NOTE | 2022-06-26 01:25 | PC.NURSE ---
pt given juice and sandwich for bs=52. pt tolerating well.
[2022-06-26 01:59] LABS: Glucose Point of Care 112 mg/dl (65-105)
[2022-06-26 02:13] VITALS: BP 110/78; PULSE 76; RESP 16
== END 2022-06-26 02:16 | disposition home or self-care (01) ==
PROVIDERS: Emergency Provider Physician Assistant
DX: J32.9 Chronic sinusitis, unspecified (principal); D50.9 Iron deficiency anemia, unspecified; F90.9 Attention-deficit hyperactivity disorder, unspecified type; F41.9 Anxiety disorder, unspecified; F32.A Depression, unspecified; Z87.442 Personal history of urinary calculi; Z87.891 Personal history of nicotine dependence
CPT/HCPCS: 36415; 80053; 81025; 82948; 85025; 99283; A9270; J7512